=== PATIENT | female | born 1970 | race Caucasian/White ===

== ENCOUNTER 2019-11-17 17:37 | Emergency (ER) | payer BC, OTHER ==
[2019-11-17 19:40] LABS: Absolute Lymphocytes (CBC) 1.1 K/uL (0.7-4.9); Basophils % 0.4 % (0-1.3); Hematocrit 35.4 % (36.0-45.0); Lymphocytes % 18.5 % (15.3-44.8); MPV 7.4 fL (7.6-11.3); RBC Red Blood Cell Count 4.01 M/uL (3.86-4.86)
[2019-11-17] MEDS ORDERED: METHYLPREDNISOLONE 125 MG INJ ONE (19:40)
[2019-11-17 19:42] LABS: Protime INR 0.86
[2019-11-17] MEDS ORDERED: ALBUTEROL 2.5 MG/3 ML NEB SOL ONE (19:42)
[2019-11-17] MEDS ORDERED: FENTANYL CITR 100 MCG/2 ML ONE (19:42)
[2019-11-17 20:03] LABS: ALT/SGPT 16 U/L (12-78); AST/SGOT 10 U/L (15-37); Albumin 2.7 g/dL (3.4-5.0); Alkaline Phosphatase 69 U/L (45-117); BUN Blood Urea Nitrogen 15 mg/dL (7-18); Bicarbonate 27 mmol/L (21-32); Bilirubin Direct < 0.1 mg/dL (0-0.2); Bilirubin Total 0.2 mg/dL (0.2-1.0); Glucose Level 105 mg/dL (74-106); NT PRO-BNP 112 pg/mL (<125); Potassium 3.8 mmol/L (3.5-5.1); Protein, Total 7.2 g/dL (6.4-8.2); Sodium Level 141 mmol/L (136-145); Troponin (Emerg Dept Use Only) < 0.02 ng/mL (0.0-0.045)
--- NOTE | 2019-11-17 20:03 | RAD REPORT ---
EXAM DESCRIPTION: Jeniffer Single View11/17/2019 7:35 pm CLINICAL HISTORY: sob COMPARISON: 2014 FINDINGS: The lungs appear clear of acute infiltrate. The heart is normal size IMPRESSION: No acute abnormalities displayed
--- NOTE | 2019-11-17 21:37 | EDPHYS ---
Physician Documentation [facility] Name: Jeana Wilks Age: 49 yrs Sex: Female : 1970 Arrival Date: 11/17/2019 Time: 17:41 Bed 19 Private MD: ED Physician Alvin Angulo HPI: 11/16 19:48 This 49 yrs old Female presents to ER via EMS with complaints of shortness of jr8 breath. 19:48 The patient has shortness of breath at rest. Onset: The symptoms/episode began/occurred jr8 gradually, 4 day(s) ago. Duration: The symptoms are continuous. The patient's shortness of breath is aggravated by light activity. Associated signs and symptoms: The patient has no apparent associated signs or symptoms. Severity of symptoms: At their worst the symptoms were moderate in the emergency department the symptoms are unchanged. The patient has not experienced similar symptoms in the past. The patient has been recently seen by a physician:. Patient stated that she has spinal stimulater put in this past Wednesday. Since d/c has had shortness of breath. Was seen at [facility] yesterday and has labs and CT of chest/Abd/Pelvis completed. No PE but did have ground glass opacity both lungs. Also had COVID rapid test completed which was negative. Came in today for unresolved shortness of breath . 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 - Social history:: Smoking status: unknown. ROS: 19:48 Eyes: Negative for injury, pain, redness, and discharge, ENT: Negative for injury, jr8 pain, and discharge, Neck: Negative for injury, pain, and swelling, Cardiovascular: Negative for chest pain, palpitations, and edema, Abdomen/GI: Negative for abdominal pain, nausea, vomiting, diarrhea, and constipation, Back: Negative for injury and pain, MS/Extremity: Negative for injury and deformity, Skin: Negative for injury, rash, and discoloration, Neuro: Negative for headache, weakness, numbness, tingling, and seizure. 19:48 Respiratory: Positive for shortness of breath, wheezing. Exam: 19:48 Eyes: Pupils equal round and reactive to light, extra-ocular motions intact. Lids and jr8 lashes normal. Conjunctiva and sclera are non-icteric and not injected. Cornea within normal limits. Periorbital areas with no swelling, redness, or edema. ENT: Nares patent. No nasal discharge, no septal abnormalities noted. Tympanic membranes are normal and external auditory canals are clear. Oropharynx with no redness, swelling, or masses, exudates, or evidence of obstruction, uvula midline. Mucous membranes moist. Neck: Trachea midline, no thyromegaly or masses palpated, and no cervical lymphadenopathy. Supple, full range of motion without nuchal rigidity, or vertebral point tenderness. No Meningismus. Cardiovascular: Regular rate and rhythm with a normal S1 and S2. No gallops, murmurs, or rubs. Normal PMI, no JVD. No pulse deficits. Abdomen/GI: Soft, non-tender, with normal bowel sounds. No distension or tympany. No guarding or rebound. No evidence of tenderness throughout. Back: No spinal tenderness. No costovertebral tenderness. Full range of motion. Skin: Warm, dry with normal turgor. Normal color with no rashes, no lesions, and no evidence of cellulitis. MS/ Extremity: Pulses equal, no cyanosis. Neurovascular intact. Full, normal range of motion. Neuro: Awake and alert, GCS 15, oriented to person, place, time, and situation. Cranial nerves II-XII grossly intact. Motor strength 5/5 in all extremities. Sensory grossly intact. Cerebellar exam normal. Normal gait. 19:48 Respiratory: the patient does not display signs of respiratory distress, Respirations: normal, Breath sounds: wheezing: expiratory that is moderate, is heard diffusely. Vital Signs: 17:45 BP 109 / 71; Pulse 100; Resp 16; Temp 97.8; Pulse Ox 96% on R/A; bp 18:15 BP 111 / 90; Pulse 101; Resp 16; Pulse Ox 97% ; bp 19:30 BP 114 / 79; Pulse 102; Resp 20; Pulse Ox 100% on R/A; wh 20:00 BP 102 / 56; Pulse 93; Resp 20; Pulse Ox 100% on R/A; wh 21:00 BP 102 / 87; Pulse 96; Resp 20; Pulse Ox 98% on Nebulizer Mask; 21:56 BP 110 / 74; Pulse 98; Resp 18; Pulse Ox 96% ; wh MDM: 18:48 Patient medically screened. [facility] 21:38 Data reviewed: vital signs, nurses notes, lab test result(s), EKG, radiologic studies, jr8 plain films. Data interpreted: Pulse oximetry: on room air is 98 %. Interpretation: normal. Counseling: I had a detailed discussion with the patient and/or guardian regarding: the historical points, exam findings, and any diagnostic results supporting the discharge/admit diagnosis, lab results, radiology results, the need for outpatient follow up, a family practitioner, to return to the emergency department if symptoms worsen or persist or if there are any questions or concerns that arise at home. Response to treatment: the patient's symptoms have markedly improved after treatment. 11/16 19:03 Order name: Basic Metabolic Panel; Complete Time: 20:09 [facility] 11/16 19:03 Order name: CBC with Diff; Complete Time: 19:52 [facility] 11/16 19:03 Order name: LFT's; Complete Time: 20:09 [facility] 11/16 19:03 Order name: Magnesium; Complete Time: 20:09 [facility] 11/16 19:03 Order name: NT PRO-BNP; Complete Time: 20:09 [facility] 11/16 19:03 Order name: PT-INR; Complete Time: 19:52 [facility] 11/16 19:03 Order name: Troponin (emerg Dept Use Only); Complete Time: 20:09 [facility] 11/16 19:03 Order name: XRAY Chest (1 view); Complete Time: 20:09 [facility] 11/16 19:03 Order name: EKG; Complete Time: 19:03 [facility] 11/16 19:03 Order name: Cardiac monitoring; Complete Time: 19:30 [facility] 11/16 19:03 Order name: EKG - Nurse/Tech; Complete Time: 19:30 [facility] 11/16 19:03 Order name: IV Saline Lock; Complete Time: 19:30 [facility] 11/16 19:03 Order name: Labs collected and sent; Complete Time: 19:30 [facility] 11/16 19:03 Order name: O2 Per Protocol; Complete Time: 19:30 [facility] 11/16 19:03 Order name: O2 Sat Monitoring; Complete Time: 19:30 jr8 Administered Medications: 19:33 Drug: SOLU-Medrol 125 mg Route: IVP; Site: right antecubital; 21:01 Follow up: Response: No adverse reaction 19:35 Drug: fentaNYL (PF) 50 mcg {Note: RASS 0.} Route: IVP; Site: right antecubital; 21:01 Follow up: Response: No adverse reaction; Pain is decreased; RASS: Alert and Calm (0) 19:37 Drug: Albuterol 2.5 mg Route: Inhalation; 20:10 Drug: Albuterol 2.5 mg Route: Inhalation; 21:01 Drug: Albuterol 2.5 mg Route: Inhalation; 21:18 Follow up: Response: No adverse reaction; Wheezing diminished Disposition: 11/17/19 21:36 Discharged to Home. Impression: Bronchitis, not specified as acute or chronic. - Condition is Stable. - Discharge Instructions: Acute Bronchitis, Adult, Pneumonitis. - Prescriptions for Prednisone 20 mg Oral Tablet - take 1 tablet by ORAL route once daily for 5 days; 5 tablet. Zithromax Z- Jose 250 mg Oral Tablet - take 1 tablet by ORAL route as directed for 5 days Day 1 - take two (2) tablets one time. Day 2, 3, 4 , 5 take one (1) tablet once daily.; 6 tablet. Albuterol Sulfate 90 mcg/actuation - inhale 1-2 puff by INHALATION route every 4-6 hours; 1 Inhaler. Flovent HFA 110 mcg/actuation Inhalation Aerosol - inhale 2 puffs by INHALATION route 2 times per day for 7 days; 1 Inhaler. - Medication Reconciliation Form, Thank You Letter, Antibiotic Education, Prescription Opioid Use form. - Follow up: Private Physician; When: 2 - 3 days; Reason: Recheck today's complaints, Continuance of care, Re-evaluation by your physician. - Problem is new. - Symptoms have improved. Addendum: 11/20/2019 17:55 Co-signature as Attending Physician, Alvin Angulo MD. r n Signatures: Dispatcher [employer] EDAK Alvin Angulo MD MD rn Roszak, Josh, PA PA jr8 Nica Gutierrez Antonio, Keith, RN RN bp Corrections: (The following items were deleted from the chart) 11/16 21:57 21:36 11/17/2019 21:36 Discharged to Home. Impression: Bronchitis, not specified as wh acute or chronic. Condition is Stable. Forms are Medication Reconciliation Form, Thank You Letter, Antibiotic Education, Prescription Opioid Use. Follow up: Private Physician; When: 2 - 3 days; Reason: Recheck today's complaints, Continuance of care, Re-evaluation by your physician. Problem is new. Symptoms have improved. jr8
--- NOTE | 2019-11-17 21:37 | ER ---
Nurse's Notes [facility] Name: Jeana Wilks Age: 49 yrs Sex: Female : 1970 Arrival Date: 11/17/2019 Time: 17:41 Bed 19 Private MD: Diagnosis: Bronchitis, not specified as acute or chronic Presentation: 11/16 17:45 Chief complaint: Patient states: SOB AND BACK PAIN, SEEN FOR SAME Y/D AT [facility] AND D/C HOME. Coronavirus screen: At this time, the client does not indicate any symptoms associated with coronavirus-19. Ebola Screen: No symptoms or risks identified at this time. Initial Sepsis Screen: Does the patient meet any 2 criteria? HR > 90 bpm. No. Patient's initial sepsis screen is negative. Does the patient have a suspected source of infection? No. Patient's initial sepsis screen is negative. Risk Assessment: Do you want to hurt yourself or someone else? Patient reports no desire to harm self or others. Onset of symptoms is unknown. Care prior to arrival: IV initiated. 20 GA, in the right antecubital area. 17:45 Method Of Arrival: EMS: [facility] bp 17:45 Acuity: BENITO 3 bp Triage Assessment: 17:45 General: Appears distressed, uncomfortable, obese, Behavior is cooperative, appropriate bp for age, anxious. 17:45 Pain: Complains of pain in back. EENT: No deficits noted. Neuro: No deficits noted. bp Cardiovascular: No deficits noted. Respiratory: Reports shortness of breath Breath sounds with wheezes bilaterally. GI: No signs and/or symptoms were reported involving the gastrointestinal system. : No signs and/or symptoms were reported regarding the genitourinary system. Derm: No deficits noted. Musculoskeletal: No deficits noted. 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 - Social history:: Smoking status: unknown. Screenin:45 Abuse screen: Denies threats or abuse. Denies injuries from another. Nutritional bp screening: No deficits noted. Tuberculosis screening: No symptoms or risk factors identified. Fall Risk None identified. Assessment: 17:45 General: SEE TRIAGE NOTE. bp 18:15 Reassessment: PROVIDER EVAL PENDING. bp 19:30 General: Appears in no apparent distress. Behavior is calm, cooperative, appropriate wh for age. Pain: Complains of pain in back Pain does not radiate. Pain currently is 7 out of 10 on a pain scale. Pain began 2-3 days ago. Neuro: Level of Consciousness is awake, alert, obeys commands, Oriented to person, place, time, situation, Appropriate for age. Cardiovascular: Heart tones S1 S2. Respiratory: Reports shortness of breath Airway is patent Respiratory effort is even, unlabored, Respiratory pattern is tachypnea Breath sounds with wheezes bilaterally. GI: Abdomen is flat, non-distended. : No signs and/or symptoms were reported regarding the genitourinary system. EENT: No signs and/or symptoms were reported regarding the EENT system. Derm: Skin is intact, is healthy with good turgor, Skin is pink, warm \T\ dry. normal. Musculoskeletal: Circulation, motion, and sensation intact. 21:00 Reassessment: Patient appears in no apparent distress at this time. Patient and/or wh family updated on plan of care and expected duration. Pain level reassessed. Patient is alert, oriented x 3, equal unlabored respirations, skin warm/dry/pink. Patient states feeling better. Patient states symptoms have improved. 21:56 Reassessment: Patient appears in no apparent distress at this time. Patient and/or wh family updated on plan of care and expected duration. Pain level reassessed. Patient is alert, oriented x 3, equal unlabored respirations, skin warm/dry/pink. Patient states feeling better. Patient states symptoms have improved. Vital Signs: 17:45 BP 109 / 71; Pulse 100; Resp 16; Temp 97.8; Pulse Ox 96% on R/A; bp 18:15 BP 111 / 90; Pulse 101; Resp 16; Pulse Ox 97% ; bp 19:30 BP 114 / 79; Pulse 102; Resp 20; Pulse Ox 100% on R/A; wh 20:00 BP 102 / 56; Pulse 93; Resp 20; Pulse Ox 100% on R/A; wh 21:00 BP 102 / 87; Pulse 96; Resp 20; Pulse Ox 98% on Nebulizer Mask; 21:56 BP 110 / 74; Pulse 98; Resp 18; Pulse Ox 96% ; wh ED Course: 17:41 Patient arrived in ED. em1 17:45 Arm band placed on right wrist. bp 17:45 Patient has correct armband on for positive identification. Bed in low position. Call bp light in reach. Side rails up X2. 17:45 Maintain EMS IV. Dressing intact. Good blood return noted. Site clean \T\ dry. Gauge \T\ bp site: 20 GAUGE R AC. 17:46 Keith Alvarez, RN is Primary Nurse. bp 18:21 Triage completed. bp 18:33 Michael Kwon PA is PHCP. jr8 18:33 Alvin Angulo MD is Attending Physician. jr8 19:35 XRAY Chest (1 view) In Process Unspecified. EDMS 21:56 No provider procedures requiring assistance completed. IV discontinued, intact, bleeding controlled, No redness/swelling at site. Administered Medications: 19:33 Drug: SOLU-Medrol 125 mg Route: IVP; Site: right antecubital; 21:01 Follow up: Response: No adverse reaction 19:35 Drug: fentaNYL (PF) 50 mcg {Note: RASS 0.} Route: IVP; Site: right antecubital; 21:01 Follow up: Response: No adverse reaction; Pain is decreased; RASS: Alert and Calm (0) 19:37 Drug: Albuterol 2.5 mg Route: Inhalation; 20:10 Drug: Albuterol 2.5 mg Route: Inhalation; 21:01 Drug: Albuterol 2.5 mg Route: Inhalation; 21:18 Follow up: Response: No adverse reaction; Wheezing diminished Outcome: 21:36 Discharge ordered by . jr8 21:56 Discharged to home via wheelchair. 21:56 Condition: stable 21:56 Discharge instructions given to patient, Instructed on discharge instructions, follow up and referral plans. medication usage, POC Demonstrated understanding of instructions, follow-up care, medications, POC Prescriptions given X 4. 21:57 Patient left the ED. Signatures: Dispatcher [employer] EDMS Kvng Boudreaux em1 Michael Kwon PA PA jr8 Nica Gutierrez Antonio, Keith, RN RN bp
[2019-11-17 22:16] VITALS: TEMP 97.8
[2019-11-17 22:23] VITALS: BP 110/74; O2SAT 96
--- NOTE | 2019-11-18 08:20 | EKG ---
Test Date: 2019-11-17 Test Time: 19:22:06 Bss Solution Architect: MEASUREMENT RESULTS: Intervals: Rate: 98 WY: 146 QRSD: 66 QT: 340 QTc: 434 [place]: P: 41 WY: 146 QRS: 20 T: 25 INTERPRETIVE STATEMENTS: Normal sinus rhythm Low voltage QRS Borderline ECG Compared to ECG 03/27/2014 02:50:35 Low QRS voltage now present Myocardial infarct finding no longer present Electronically Signed On 11-18-19 08:19:19 CDT by Mathieu Sherwood
--- OUTSIDE RECORDS SUMMARY | 2019-11-22 21:13 | XMS REPORT | Summary of Care ---
:1970 Author Name FLORESITA MEDINA Address Unavailable Unavailable , Care Team Providers Name Role Phone TSERING Louise Unavailable Unavailable FLORESITA TAYLORM Unavailable Unavailable YEFRI CLARK Unavailable Unavailable LUMA THOMPSON Unavailable Unavailable Vi THOMPSON Unavailable Janett WEINER MD Unavailable Unavailable TSERING LARKIN MD Unavailable Unavailable FLORENTINO WEBSTER UT Unavailable Unavailable FLORESITA DPM UT Unavailable Unavailable FLORESITA THOMPSON Unavailable Unavailable Unavailable Unavailable Unavailable Functional Status Name Dates Details Functional status health issues are not documented Status: Name Dates Details Cognitive status health issues are not documented Status: Problems Name Dates Details Osteoarthritis of left knee (715.96, M17.12) Status: Active Essential (primary) hypertension (401.9, I10) Status: Active GERD (gastroesophageal reflux disease) (530.81, K21.9) Status: Active Depression (311, F32.9) Status: Active Rheumatoid arthritis (714.0, M06.9) Stat us: Active Hypothyroidism (244.9, E03.9) Status: Ac tive Bilateral knee pain (719.46, M25.561) St atus: Active Chronic, continuous use of opioids (305.51, F11.90) Status: Active Osteoarthritis of right knee (715.96, M17.11) Status: Active Arthritis of both knees (716.96, M17.0) Status: Active Bunion, left (727.1, M21.612) Status: Ac tive Acquired hallux valgus of left foot (735.0, M20.12) Status: Active Acquired hammer toe of left foot (735.4, M20.42) Status: Active Acquired hallux valgus of right foot (735.0, M20.11) Status: Active Bunion, right (727.1, M21.611) Status: A ctive Medications Name Dates Details DULoxetine HCl - 60 MG Oral Capsule Laura yed Release Particles Refills: 0 Active fentaNYL PT72 Refills: 0 Active Synthroid 150 MCG Oral Tablet Refills: 0 Active Famotidine TABS Refills: 0 Active Enoxaparin Sodium 40 MG/0.4ML Subcutaneous Solution INJECT 40 MG Daily Quantity: 14 Refills: 0 TSERING Louise GUNNISON Start : 26-Oct-2018 Active 0.4 ML Syringe Colace 100 MG Oral Capsule TAKE 1 CAPSULE TWICE DAILY. Quantity: 28 Refills: 0 TSERING Louise, GUNNISON Start : 26-Oct-2018 Active Ondansetron HCl - 4 MG Oral Tablet Take 1 tablet Q8H PRN for nausea Quantity: 15 Refills: 0 TSERING Louise, GUNNISON Start : 26-Oct-2018 Active oxyCODONE-Acetaminophen 10-325 MG Oral Tablet Refills: 0 Active Lyrica 150 MG Oral Capsule Refills: 0 Active Colace 100 MG Oral Capsule TAKE 1 CAPSULE TWICE DAILY. Quantity: 28 Refills: 0 TSERING Louise, GUNNISON Start : 26-Dec-2018 Active Enoxaparin Sodium 40 MG/0.4ML Subcutaneous Solution Inject SQ 40mg QD for 4 weeks Quantity: 28 Refills: 0 TSERING Louise, GUNNISON Start : 26-Dec-2018 Active 0.4 ML Syringe Ondansetron HCl - 4 MG Oral Tablet Take 1 tablet Q8H PRN for nausea Quantity: 15 Refills: 0 TSERING Louise, GUNNISON Start : 26-Dec-2018 Active Taytulla CAPS Refills: 0 Active Lyrica CAPS Refills: 0 Active Cymbalta CPEP Refills: 0 Active Allergies and Adverse Reactions Name Dates Details NSAIDs (Allergy) Status: Active Stadol (Allergy) Status: Active Past Medical History Name Dates Details History of anxiety (V11.8, Z86.59) Statu s: Resolved History of arthritis (V13.4, Z87.39) Sta tus: Resolved History of back pain (V13.59, Z87.39) St atus: Resolved History of bruising easily (V13.9, Z86.2) Status: Resolved History of depression (V11.8, Z86.59) St atus: Resolved History of fatigue (V13.89, Z87.898) Sta tus: Resolved History of joint pain (V13.59, Z87.39) S tatus: Resolved History of joint stiffness (V13.59, Z87.39) Status: Resolved History of joint swelling (V13.59, Z87.39) Status: Resolved History of Other depression (311, F32.89) Status: Resolved History of sleep apnea (V13.89, Z86.69) Status: Resolved History of thyroid disease (V12.29, Z86.39) Status: Resolved Procedures Procedure Dates Details [L] 2018 Novel Coronavirus (COVID-19), MAXIMO Date: 31-Jul-2019 History of Knee Surgery Completed History of Meniscus repair Completed Immunization Name Dates Details Immunizations not documented Social History Name Dates Details - Status: Name Dates Details Never smoked tobacco (finding) Vital Signs Date Test Result Details No Known Vitals to report Results Date Description Value Details Results not documented Plan of Care Name Dates Details Planned Observations Planned Goals not documented Planned Encounters Appointment; ALETHA CANAS DPM On: 25-Sep-2019 8:45 Interventions Provided Labs/Procedures/Imaging[A] Xray FOOT COMPLETE MIN. OF 3 VIEWS; Done: 24 Aug 2019 PlanPatient Education/Instructions: Patient education and reassurance was provided for better understanding of the diagnosis and treatment plan. An opportunity to ask questions was provided. X-ray images/reports were reviewed. Findings were discussed in detail. The patient's sutures were removed under sterile conditions. Steri-strips were applied to the affected area. She will continue weight bearing in her boot. Follow Up: Return to the clinic in 4 weeks or as needed. x-ray(s) needed at next visit. Instructions Name Dates Details Instructions not documented Encounters Appointment; ALETHA WEINER M.D. On: 17-Jun-2018 10:45 Encounter Diagnosis: Problem not documented Appointment; POWER CAGLE M.D. On: 05-Jul-2018 14:3 0 Encounter Diagnosis: Problem not documented Appointment; POWER CAGLE M.D. On: 23-Aug-2018 13:00 Encounter Diagnosis: Problem not documented Appointment; POWER CAGLE M.D. On: 11-Oct-2018 9:30 Encounter Diagnosis: Problem not documented Appointment; NAYE DAVIES M.D. On: 31-Oct-2018 9:00 Encounter Diagnosis: Problem not documented Appointment; POWER CAGLE M.D. On: 01-Nov-2018 9:30 Encounter Diagnosis: Problem not documented Appointment; POWER CAGLE M.D. On: 10-Nov-2018 13:0 0 Encounter Diagnosis: Problem not documented Appointment; POWER CAGLE M.D. On: 15-Nov-2018 15:00 Encounter Diagnosis: Problem not documented Appointment; POWER CAGLE M.D. On: 13-Dec-2018 15:0 0 Encounter Diagnosis: Problem not documented Appointment; POWER CAGLE M.D. On: 27-Dec-2018 9:30 Encounter Diagnosis: Problem not documented Appointment; POWER CAGLE M.D. On: 10-Jan-2019 13:1 5 Encounter Diagnosis: Problem not documented Appointment; POWER CAGLE M.D. On: 10-Feb-2019 10:4 5 Encounter Diagnosis: Problem not documented Appointment; POWER CAGLE M.D. On: 28-Feb-2019 13:0 0 Encounter Diagnosis: Problem not documented Appointment; POWER CAGLE M.D. On: 28-Mar-2019 13:0 0 Encounter Diagnosis: Problem not documented Appointment; ALETHA CANAS DPM On: 25-Apr-2019 9:30 Encounter Diagnosis: Problem not documented Appointment; ALETHA CANAS DPM On: 26-Apr-2019 12:00 Encounter Diagnosis: Problem not documented Appointment; ALETHA CANAS DPM On: 08-May-2019 10:00 Encounter Diagnosis: Problem not documented Appointment; ALETHA CANAS DPM On: 12-Jun-2019 9:30 Encounter Diagnosis: Problem not documented Appointment; ALETHA CANAS DPM On: 19-Jun-2019 9:15 Encounter Diagnosis: Problem not documented Appointment; ALETHA CANAS DPM On: 20-Jun-2019 9:00 Encounter Diagnosis: Problem not documented Appointment; ALETHA CANAS DPM On: 14-Aug-2019 7:30 Encounter Diagnosis: Problem not documented Appointment; ALETHA CANAS DPM On: 24-Aug-2019 16:15 Encounter Diagnosis: Problem not documented
--- OUTSIDE RECORDS SUMMARY | 2019-11-22 21:13 | XMS REPORT | Continuity of Care Document ---
:1970 Author Organization [facility] t Address [address] Almeida [address] [place] [id number] Care Team Providers Name Role Phone Garg DO Attending Clinician DR NACHO Attending Clinician Unavailable FLORESITA Attending Clinician Unavailable Radiology Attending Clinician Unavailable Bruno THOMPSON, Gene Attending Clinician TSERING Attending Clinician Unavailable Deyvi THOMPSON Attending Clinician KEKE Attending Clinician Unavailable HUSAM Attending Clinician Unavailable DR NACHO Admitting Clinician Unavailable Problems Condition Condition Condition Status Onset Resolution Last Treating Co mments Source Name Details Category Date Date Treatment Clinician Date History of History of Problem Resolve Univers depression depression d it y of [place] Physici ans History of History of Problem Resolve Univers joint joint d ity of swelling swelling [place] [facility] History of History of Problem Resolve Univers bruising bruising d ity of easily easily [place] [facility] History of History of Problem Resolve Univers fatigue fatigue d ity of [place] [facility] History of History of Problem Resolve Univers Other Other d [place] of depression depression [place] [facility] History of History of Problem Resolve Univers sleep sleep d ity of apnea apnea [place] [facility] History of History of Problem Resolve Univers thyroid thyroid d ity of disease disease [place] [facility] Osteoarthr Osteoarthr Problem Active U nivers itis of itis of [place] left knee [place] Essential Essential Problem Active Uni vers (primary) (primary) ity of hypertensi [place]ens[place] Physici ans GERD GERD Problem Active Univers (gastroeso (gastroeso it y of phageal phageal [place] reflux reflux Physici disease) disease) ans Depression Depression Problem Active U nivers ity of [place] [facility]ici ans Rheumatoid Rheumatoid Problem Active U nivers arthritis arthritis ity of [place] [facility] Hypothyroi Hypothyroi Problem Active U nivers dism dism ity of [place] [facility] ans Bilateral Bilateral Problem Active Uni vers knee pain knee pain ity of [place] [facility] Chronic, Chronic, Problem Active Unive rs continuous continuous it y of use of use of [place] opioids opioids Physici ans Osteoarthr Osteoarthr Problem Active U nivers itis of itis of [place] of right knee right knee [place] Arthritis Arthritis Problem Active Uni vers of both of both ity of knees knees [place] [facility] ans Acquired Acquired Problem Active Unive rs hallux hallux ity of val[place] right foot right foot Ph ysici ans Bunion, Bunion, Problem Active Univers right right ity of [place] Physici ans Bunion, Bunion, Problem Active Univers left left ity of [place] Physici ans Acquired Acquired Problem Active Unive rs hallux hallux ity of valgus of [place] left foot left foot Phys ici ans Acquired Acquired Problem Active Unive rs hammer toe hammer toe it y of of left of left [place] foot foot Physici ans Allergies, Adverse Reactions, Alerts Allergy Allergy Status Severity Reaction(s) Onset Inactive Treating Comm ents Source Name Type Date Date Clinician NSAIDs Allergy Active Univers to drug ity of (finding [place] ) Physici ans Stadol Allergy Active Univers to drug ity of (finding [place] ) Physici ans Social History Smoking Status Start Date Stop Date Source Never smoked tobacco (finding) U [facility] Physicians Medications Ordered Filled Start Stop Current Ordering Indication Dosage Frequency Signature Comments Components Source Medication Medication Date Date Medication? Clinician (SIG) Name Name Colyanni 100 Colace 100 2018-02 Yes STEVE Q0.5D TAKE 1 Univers MG Oral MG Oral 1-11 BRALY M.D. CAPSULE ity of Capsule Capsule 00:00: TWICE [place] 00 DAILY. Physici ans Enoxaparin Enoxaparin 2018-02 Yes [place] Inject SQ Univers Sodium 40 Sodium 40 1-11 BRALY M.D. 40mg QD ity of MG/0.4ML MG/0.4ML 00:00: for 4 [place] Subcutaneou Subcutaneou 00 weeks Physici s Solution s Solution ans Ondansetron Ondansetron 2018-02 Yes [place] Take 1 Univers HCl - 4 MG HCl - 4 MG 1-11 BRALY M.D. tablet Q8H ity of Oral Tablet Oral Tablet 00:00: PRN for [place] 00 nausea Physici ans Enoxaparin Enoxaparin Yes [place] 40 QD INJECT 40 Univers Sodium 40 Sodium 40 9-11 BRALY M.D. MG Daily ity of MG/0.4ML MG/0.4ML 00:00: [place] Subcutaneou Subcutaneou 00 P hysici s Solution s Solution ans Colace 100 Colace 100 Yes [place] Q0.5D TAKE 1 Univers MG Oral MG Oral 9-11 BRALY M.D. CAPSULE ity of Capsule Capsule 00:00: TWICE [place] 00 DAILY. Physici ans Ondansetron Ondansetron Yes [place] Take 1 Univers HCl - 4 MG HCl - 4 MG 9-11 BRALY M.D. tablet Q8H ity of Oral Tablet Oral Tablet 00:00: PRN for [place] nausea Physici ans DULoxetine DULoxetine Yes Uni vers HCl - 60 MG HCl - 60 MG i ty of Oral Oral [place] Capsule Capsule Physici Delayed Delayed ans Release Release Particles Particles fentaNYL fentaNYL Yes Univers PT72 PT72 ity of [place] Physici ans Synthroid Synthroid Yes Unive rs 150 MCG 150 MCG ity of Oral Tablet Oral Tablet [place] Physici ans Famotidine Famotidine Yes Uni vers TABS TABS ity of [place] Physici ans oxyCODONE-A oxyCODONE-A Yes U nivers cetaminophe cetaminophe i ty of n 10-325 MG n 10-325 MG [place] Oral Tablet Oral Tablet P hysici ans Lyrica 150 Lyrica 150 Yes Uni vers MG Oral MG Oral ity of Capsule Capsule [place] Physici ans Taytulla Taytulla Yes Univers CAPS CAPS ity of [place] Physici ans Lyrica CAPS Lyrica CAPS Yes U nivers ity of [place] Physici ans Cymbalta Cymbalta Yes Univers CPEP CPEP ity of [place] Physici ans Vital Signs Vital Name Observation Time Observation Value Comments Source Systolic blood 2019-04-25 148 mm[Hg] University of pressure 11:49:00 [place] Physician s Diastolic blood 2019-04-25 93 mm[Hg] University o pressure 11:49:00 [place] Phys[facility] s Body height 2019-04-25 64 [in_us] [facility] 11:49:00 [place] Physician s Weight 2019-04-25 232 [lb_av] [facility] 11:49:00 [place] [facility] s Body mass index 2019-04-25 39.82 kg/m2 [facility] o (BMI) [Ratio] 11:49:00 [place] Physicia ns Heart Rate 2019-04-25 109 /min [facility] 11:49:00 [place] Phys[facility] s BP Systolic 2018-10-31 115 mm[Hg] Location: [facility]; [facility] 08:51:00 Position: [place] Physician s Sitting BP Diastolic 2018-10-31 81 mm[Hg] Location: [facility]; [facility] 08:51:00 Position: [place] Physician s Sitting Height 2018-10-31 64 [in_us] [facility] 08:51:00 [place] Physician s Weight 2018-10-31 240 [lb_av] [facility] 08:51:00 [place] [facility] s Body Mass Index 2018-10-31 41.2 kg/m2 University o f Calculated 08:51:00 [place] [facility] s Heart Rate 2018-10-31 82 /min [facility] 08:51:00 [place] [facility] Height 2018-10-11 64 [in_us] [facility] 09:50:00 [place] [facility] Weight 2018-10-11 236 [lb_av] [facility] 09:50:00 [place] [facility] Body Mass Index 2018-10-11 40.51 kg/m2 University o f Calculated 09:50:00 [place] [facility] Height 2018-07-06 64 [in_us] [facility] 14:09:00 [place] [facility] s Weight 2018-07-06 245 [lb_av] [facility] of 14:09:00 [place] [facility] Body Mass Index 2018-07-06 42.05 kg/m2 University o f Calculated 14:09:00 [place] [facility] BP Systolic 2018-06-17 126 mm[Hg] Location: [facility]; [facility] 10:58:00 Position: [place] Physician s Sitting BP Diastolic 2018-06-17 85 mm[Hg] Location: [facility]; [facility] 10:58:00 Position: [place] Physician s Sitting Height 2018-06-17 64 [in_us] [facility] 10:58:00 [place] [facility] Weight 2018-06-17 245 [lb_av] [facility] 10:58:00 [place] [facility] Body Mass Index 2018-06-17 42.05 kg/m2 University o f Calculated 10:58:00 [place] [facility] s Heart Rate 2018-06-17 95 /min [facility] 10:58:00 [place] [facility] Procedures Procedure Date / Time Performing Clinician Source Performed Post Op Promis 2019-09-13 00:00:00 [facility] Survey Physicians [L] 20182019-07-31 00:00:00 [place] o f [place] Coronavirus (COVID-19), Physicia ns MAXIMO Post Op Promis 2019-05-05 00:00:00 [facility] Survey Physicians [UTP] Ortho - Surgery 2019-04-25 00:00:00 [facility] Scheduling Physicians [U] XRAY KNEE 3 S 2019-02-10 00:00:00 [facility] LEFT [id number] Physicians Post Op Promis 2019-01-04 00:00:00 [facility] Survey Physicians Post Op Promis 2018-11-15 00:00:00 [facility] Survey Physicians [U] XRAY KNEE 3 S 2018-11-10 00:00:00 [facility] RIGHT [id number] Physicians History of Knee Surgery [facility] Physicians History of Meniscus [facility] [place] [facility] repair Physicians Plan of Care Planned Activity Planned Date Details Comments Source Diagnostic Test 2019-04-25 [UTP] Ortho - [facility] Pending 00:00:00 Surgery Scheduling Physician s [code = [UTP] Ortho - Surgery Scheduling] Encounters Start End Encounter Admission Attending Care Care Encounter Source Date/Time Date/Time Type Type Clinicians Facility Department ID 2019-11-08 Outpatient MHNE MHNE [id number] MH NE 11:35:24 2019-11-16 2019-11-16 Emergency [facility] [id number] 13:23:00 19:39:00 Sedrick Goldsmith [id number] [place] [id number] [place] [id number] 2019-09-21 2019-09-21 Outpatient C NACHO [id number] [place] 05:31:00 11:00:00 , LIANNA [facility] 2019-08-24 2019-08-24 [facility] [id number] Univers 16:15:00 16:15:00 t; ALETHA CANAS, - Sugar ity of [place], DPM [place] DPM Physici ans 2019-08-14 2019-08-14 [facility]shannon [facility] [id number] Univers 07:30:00 07:30:00 t; ALETHA CANAS, - Sugar ity of [place], DPM [place] DPM Physici ans 2019-08-09 2019-08-09 [facility] Radiology [facility] [id number] 17:00:00 23:59:00 [facility] [id number] [place] [id number] [place] [id number] [id number] 2019-06-20 2019-06-20 Young [facility] [id number] Univers 09:00:00 09:00:00 t; ALETHA CANAS, - [place] ity of [place], DPM [place] DPM Physici ans 2019-06-19 2019-06-19 [facility] [id number] Univers 09:15:00 09:15:00 t; ALETHA CANAS, ity of [place], DPM [place] DPM Physici ans 2019-06-12 2019-06-12 [facility] [id number] Univers 09:30:00 09:30:00 t; ALETHA CANAS, ity of [place], DPM [place] DPM Physici ans 2019-05-08 2019-05-08 Young [facility] [id number] Univers 10:00:00 10:00:00 t; ALETHA CANAS, - [place] ity of [place], DPM [place] DPM Physici ans 2019-04-26 2019-04-26 Young [facility] [id number] Univers 12:00:00 12:00:00 t; ALETHA CANAS, - [place] ity of [place], DPM [place] DPM Physici ans 2019-04-25 2019-04-25 Young [facility] [id number] Univers 09:30:00 09:30:00 t; ALETHA CANAS, - [place] ity of [place], DPM [place] DP Physici ans 2019-04-19 2019-04-19 [facility] [id number] 00:00:00 00:00:00 Blade Goldsmith [id number] [place] [id number] [facility] [id number] [facility] 092 [facility] 2019-03-28 2019-03-28 Appointmen JOSE CAGLE Orthopedics [id number] Univers 13:00:00 13:00:00 t; POWER CAGLE [facility] Physi ci and Spine [facility] 2019-03-24 2019-03-24 [facility] [id number] 00:00:00 00:00:00 Luz Agus [id number] [place] [id number] [facility] [id number] [facility] 377 [facility] 2019-03-02 2019-03-02 [facility] [id number] 09:47:00 23:59:00 [facility] Luz Goldsmith [id number] [place] [id number] [place] [id number] 2019-02-28 2019-02-28 AppointJOSE Shaver [id number] Univers 13:00:00 13:00:00 t; POWER CAGLE ity of [place], M.D. [place] M.D. Physici ans 2019-02-10 2019-02-10 AppointJOSE Shaver Orthopedics [id number] Univers 10:45:00 10:45:00 t; POWER CAGLE [facility] Physi ci and Spine [facility] 2019-01-10 2019-01-10 AppointJOSE Shaver [id number] Univers 13:15:00 13:15:00 t; POWER CAGLE ity Dani STEVE M.D. Physici ans 2018-12-31 2018-12-31 Emergency E MHFB MHFB [id number] MHFB 11:42:00 11:42:00 2018-12-27 2018-12-27 JOSE Sewell Orthopedics [id number] Univers 09:30:00 09:30:00 t; POWER CAGLE [facility] Physi ci and Spine [facility] 2018-12-27 2018-12-27 Outpatient MHFB MHFB [id number] MHFB 05:18:00 05:18:00 2018-12-13 2018-12-13 JOSE Sewell Orthopedics [id number] Univers 15:00:00 15:00:00 t; [facility] 2018-11-15 2018-11-15 JOSE Sewell [facility] [id number] Univers 15:00:00 15:00:00 t; POWER CAGLE [facility]y [facility] Physici [facility] 2018-11-10 2018-11-10 JOSE Sewell Orthopedics [id number] Univers 13:00:00 13:00:00 t; POWER CAGLE [facility] ci [facility] Sp[facility] 2018-11-01 2018-11-01 JOSE Sewell Orthopedics [id number] Univers 09:30:00 09:30:00 t; POWER CAGLE [facility] ci [facility] Sp[facility] 2018-10-31 2018-10-31 JOSE Ibarra Multispecia [id number] Univers 09:00:00 09:00:00 t; NAYE DAVIES M.D. lty - i ty of Dani YANCEY Frederickson [place] Physici ans 2018-10-28 2018-10-28 Foreign Carr [facility] [id number] 00:00:00 00:00:00 Blade Goldsmith [id number] [place] [id number] Professio [id number] [facility] 2018-10-20 2018-10-20 Refill Bruno [facility] [id number] 00:00:00 00:00:00 Blade [place] [id number] [place] [id number] Professio [id number] [facility] 2018-10-18 2018-10-18 [facility] Radiology [facility] [id number] 08:17:45 23:59:00 Encounter Elizabeth [id number] [place] [id number] [place] [id number] 2018-10-18 2018-10-18 [facility] Radiology [facility] [id number] 08:17:33 23:59:00 Encounter Elizabeth [id number] [place] [id number] [place] [id number] 2018-10-18 2018-10-18 [facility] Radiology [facility] [id number] 08:17:23 23:59:00 Encounter Elizabeth [id number] [place] [id number] [place] [id number] 2018-10-11 2018-10-11 Appointmen JOSE CAGLE Orthopedics [id number] [facility] 09:30:00 09:30:00 t; POWER CAGLE, [facility] Dani STEVE M.D. Orthopedic Physi ci and Spine [facility] 2018-09-30 2018-09-30 [facility] [id number] 13:01:22 13:57:19 Visit Blade Goldsmith [id number] [place] [id number] Professio [id number] [address] 2018-08-23 2018-08-23 Appointmen JOSE CAGLE [facility] [id number] [facility] 13:00:00 13:00:00 t; POWER CAGLE florentin Dani STEVE M.D. Physici [facility] 2018-07-05 2018-07-05 AppointJOSE Shaver Orthopedics [id number] Univers 14:30:00 14:30:00 t; POWER CAGLE, [facility] Orthopedic Physi ci and Spine [facility] 2018-06-17 2018-06-17 AppointJOSE Amaya [facility] [id number] Univers 10:45:00 10:45:00 t; ALETHA WEINER, Orthopedic i ty of Dani POMPA Surgery - Daniel Tapia Physici Trace 1 ans Results Test Description Test Time Test Comments Results Result Comments Source Post Op Promis 29 Survey 2019-05-03 14:02:47 Test Item Value Reference Range Interpretation Comme nts Pain Interference: (test code = Pain Interference:) 68.1 1 N Pain Intensity: (test code = Pain Intensity:) 53.7 1 N Physical Function: (test code = Physical Function:) 27.8 1 N Satisfaction Role: (test code = Satisfaction Role:) 38.1 1 N [facility] Physicians[U] XRAY KNEE 3 VWS RIGHT [id number] 12:44:00 Images acquired, not reported on this accession number.[facility] [place] [facility]
--- OUTSIDE RECORDS SUMMARY | 2019-11-22 21:14 | XMS REPORT | Summary of Care ---
:1970 Author Name Nico Address Unavailable Unavailable , Care Team Providers Name Role Phone TSERING Louise Unavailable Unavailable Nico Unavailable Unavailable YEFRI CLARK Unavailable Unavailable LUMA THOMPSON Unavailable Janett Lebron MD Unavailable Janett WEINER MD Unavailable Unavailable TSERING LARKIN MD Unavailable Unavailable FLORENTINO WEBSTER [place] Unavailable Unavailable FLORESITA TAYLORM [place] Unavailable Unavailable FLORESITA THOMPSON Unavailable Unavailable [...] Daily Quantity: 14 Refills: 0 TSERING Louise [place] Start : 26-Oct-2018 Active 0.4 ML Syringe Colace 100 MG Oral Capsule TAKE 1 CAPSULE TWICE DAILY. Quantity: 28 Refills: 0 TSERING Louise, [place] Start : 26-Oct-2018 Active Ondansetron HCl - 4 MG Oral Tablet Take 1 tablet Q8H PRN for nausea Quantity: 15 Refills: 0 TSERING Louise, [place] Start : 26-Oct-2018 Active oxyCODONE-Acetaminophen 10-325 MG Oral Tablet Refills: 0 Active Lyrica 150 MG Oral Capsule Refills: 0 Active Colace 100 MG Oral Capsule TAKE 1 CAPSULE TWICE DAILY. Quantity: 28 Refills: 0 TSERING Louise, [place] Start : 26-Dec-2018 Active Enoxaparin Sodium 40 MG/0.4ML Subcutaneous Solution Inject SQ 40mg QD for 4 weeks Quantity: 28 Refills: 0 TSERING Louise, [place] Start : 26-Dec-2018 Active 0.4 ML Syringe Ondansetron HCl - 4 MG Oral Tablet Take 1 tablet Q8H PRN for nausea Quantity: 15 Refills: 0 TSERING Louise, [place] Start : 26-Dec-2018 Active Taytulla CAPS Refills: [...] Z86.39) Status: Resolved Procedures Procedure Dates Details Post Op Promis 29 Survey Date: 13-Sep-2019 [L] 2018 Novel Coronavirus (COVID-19), MAXIMO Date: 31-Jul-2019 History of Meniscus repair Completed History of Knee Surgery Completed Immunization Name Dates Details Immunizations not [...] CANAS DPM On: 25-Sep-2019 8:45 Interventions Provided Labs/Procedures/ImagingPost Op Promis 29 Survey; To Be Done: 13 Sep 2019 Instructions Name Dates Details Instructions not documented [...]
--- OUTSIDE RECORDS SUMMARY | 2019-11-22 21:14 | XMS REPORT | Summary of Care ---
:1970 Author Name FLORESITA MEDINA Address Unavailable Unavailable , Care Team Providers Name Role Phone TSERING Louise Unavailable Unavailable FLORESITA TAYLORM Unavailable Unavailable YEFRI CLARK Unavailable Unavailable LUMA THOMPSON Unavailable Unavailable Vi THOMPSON Unavailable Janett WEINER MD Unavailable Unavailable TSERING LARIKN MD Unavailable Unavailable FLORENTINO WEBSTER [place] Unavailable [...] Daily Quantity: 14 Refills: 0 TSERING Louise [place] Start : 26-Oct-2018 Active 0.4 ML Syringe Colace 100 MG Oral Capsule TAKE 1 CAPSULE TWICE DAILY. Quantity: 28 Refills: 0 TSERING Louise, [place] Start : 26-Oct-2018 Active Ondansetron HCl - 4 MG Oral Tablet Take 1 tablet Q8H PRN for nausea Quantity: 15 Refills: 0 TSERING Louise, [place] Start : 26-Oct-2018 Active oxyCODONE-Acetaminophen 10-325 MG Oral Tablet Refills: 0 Active Lyrica 150 MG Oral Capsule Refills: 0 Active Colace 100 MG Oral Capsule TAKE 1 CAPSULE TWICE DAILY. Quantity: 28 Refills: 0 TSERING Louise, [place] Start : 26-Dec-2018 Active Enoxaparin Sodium 40 MG/0.4ML Subcutaneous Solution Inject SQ 40mg QD for 4 weeks Quantity: 28 Refills: 0 TSERING Louise, [place] Start : 26-Dec-2018 Active 0.4 ML Syringe Ondansetron HCl - 4 MG Oral Tablet Take 1 tablet Q8H PRN for nausea Quantity: 15 Refills: 0 TSERING Louise, [place] Start : 26-Dec-2018 Active Taytulla CAPS Refills: [...]
--- OUTSIDE RECORDS SUMMARY | 2019-11-22 21:14 | XMS REPORT | Summary of Care ---
:1970 Author Name FLORESITA MEDINA Address Unavailable Unavailable , Care Team Providers Name Role Phone TSERING Louise Unavailable Unavailable Jonnie CABRALES Unavailable Unavailable YEFRI CLARK Unavailable Unavailable LUMA [...] Daily Quantity: 14 Refills: 0 TSERING Louise [place] Start : 26-Oct-2018 Active 0.4 ML Syringe Colace 100 MG Oral Capsule TAKE 1 CAPSULE TWICE DAILY. Quantity: 28 Refills: 0 TSERING Louise, [place] Start : 26-Oct-2018 Active Ondansetron HCl - 4 MG Oral Tablet Take 1 tablet Q8H PRN for nausea Quantity: 15 Refills: 0 TSERING Louise, [place] Start : 26-Oct-2018 Active oxyCODONE-Acetaminophen 10-325 MG Oral Tablet Refills: 0 Active Lyrica 150 MG Oral Capsule Refills: 0 Active Colace 100 MG Oral Capsule TAKE 1 CAPSULE TWICE DAILY. Quantity: 28 Refills: 0 TSERING Louise, [place] Start : 26-Dec-2018 Active Enoxaparin Sodium 40 MG/0.4ML Subcutaneous Solution Inject SQ 40mg QD for 4 weeks Quantity: 28 Refills: 0 TSERING Louise, [place] Start : 26-Dec-2018 Active 0.4 ML Syringe Ondansetron HCl - 4 MG Oral Tablet Take 1 tablet Q8H PRN for nausea Quantity: 15 Refills: 0 TSERING Louise, [place] Start : 26-Dec-2018 Active Taytulla CAPS Refills: [...] Z86.39) Status: Resolved Procedures Procedure Dates Details History of Knee Surgery Completed History of Meniscus repair Completed Immunization Name Dates Details Immunizations not documented Social History Name Dates Details - Status: Name Dates Details Never smoked tobacco (finding) Vital Signs Date Test Result Details No Known Vitals to report Results Date Description Value Details Results not documented Plan of Care Name Dates Details Planned Observations Planned Goals not documented Interventions Provided Labs/Procedures/Imaging[L] 2019 Novel Coronavirus (COVID-19), MAXIMO; To Be Done: 31 Jul 2019 Instructions Name Dates Details Instructions not [...]
--- OUTSIDE RECORDS SUMMARY | 2019-11-22 21:15 | XMS REPORT | Summary of Care ---
:1970 Author Organization [facility] - [facility] Address [address] [place] [address] Care Team Providers Name Role Phone Pcp, Does Not Have A Primary Care Provider Reason for Referral MRI/CAT Scan (Routine) Status Reason Specialty Diagnoses / Referred By Referred To Procedures Contact Contact New Request Diagnostic Diagnoses Acute midline low back pain without sciatica Sedrick Garg, Radiology Procedures CT CHEST PULMONARY ANGIOGRAM CT THORAX W CONTRAST DO [address] [place] [address] [place] [id number] MRI/CAT Scan (Routine) Status Reason Specialty Diagnoses / Referred By Referred To Procedures Contact Contact New Request Diagnostic Diagnoses Acute midline low back pain without sciatica Sedrick Garg, Radiology Procedures CT ABDOMEN PELVIS W CONTRAST DO [address] [place] [address] [place] [id number] Reason for Visit Reason Comments Shortness of Breath Pain Auth/Cert Status Reason Specialty Diagnoses / Referred By Referred To Procedures Contact Contact Emergency Medicine [facility] Em ergency Dept [address] [place] [address] Fax: Encounter Details Date Type Department Care Team Description 11/16/2019 Emergency [facility]-Emergency Sedrick Garg DO Acute midline low back pain without scia anne (Primary Dx); Department [address] [place] [address]. Shortness of breath; [address] [place] [address] [address]11 [place] [address] [place] [address] [phone] Allergies Active Allergy Reactions Severity Noted Date Comments Butorphanol Shortness of Breath 08/05/2018 Butorphanol Tartrate Anaphylaxis High 02/23/2019 documented as of this encounter (statuses as of 11/16/2019) Medications Medication Sig Dispensed Refills Start Date End Date Status ALPRAZolam 1 mg TAKE 1 TABLET BY 3 06/22/2018 Active tablet MOUTH EVERY 6 HOURS NEEDED FOR ANXIETY atorvastatin 20 mg TK 1 T PO QHS 2 06/10/2018 Active tablet cyanocobalamin 1,000 INJECT 1000 MCG 3 05/30/2018 Active mcg/mL injection EVERY 2 WEEKS INTRAMUSCULARLY FOR 90 DAYS DULoxetine 60 mg TAKE 1 CAPSULE BY 5 07/12/2018 Active capsule MOUTH TWICE A DAY AIMOVIG AUTOINJECTOR INJ 1ML SC Q MONTH 2 07/12/2018 Active 70 mg/mL AtIn FENTanyl 50 mcg/hr 1 Patch. 0 07/24/2018 Active patch foLIC acid 1 mg TK 1 T PO QD 1 05/17/2018 Active tablet meloxicam 7.5 mg TAKE 1 TABLET BY 0 06/22/2018 Active tablet MOUTH TWICE A DAY SYNTHROID 150 mcg Take 150 mcg by 1 07/12/2018 Active tablet mouth. ofloxacin 0.3 % INSTILL ONE DROP IN 0 06/22/2018 Active ophthalmic solution AFFECTED EYE THREE TIMES DAILY SUMAtriptan 6 mg/0.5 0 08/03/2018 Active mL injection sumatriptan 100 mg 0 08/03/2018 Active tablet PROPRANOLOL 20 mg TAKE 1 TABLET BY 60 tablet 1 10/21/2018 Active tabletIndications: MOUTH TWICE A DAY Intractable migraine without aura and without status migrainosus peg-electrolyte soln Take 4,000 mL by 4000 mL 0 02/24/2019 Active 236-22.74-6.74 -5.86 mouth gram SEE-INSTRUCTIONS. solutionIndications: Take as directed Screening for colorectal cancer OXCARBAZEPINE 150 mg TAKE 3 TABLETS BY 180 tablet 1 04/19/2019 Active tabletIndications: MOUTH 2 (TWO) TIMES Transient alteration DAILY. of awareness documented as of this encounter (statuses as of 11/16/2019) Active Problems Problem Noted Date Screening for colorectal cancer 02/24/2019 Overview: Added automatically from request for gaby juan [id number] Overdose 09/15/2018 Morbid obesity with body mass index of 40.0-49.9 09/15 documented as of this encounter (statuses as of 11/16/2019) Immunizations Name Administration Dates Next Due Human Rabies Vaccine From Chicken 08/29/2018, 08/21/2018, , Fibroblast Culture (RABAVERT) 08/14/2018 Td 08/14/2018 documented as of this encounter Social History Tobacco Use Types Packs/Day Years Used Date Never Smoker Smokeless Tobacco: Never Used Alcohol Use Drinks/Week oz/Week Comments Not Currently Sex Assigned at Date Recorded Not on file COVID-19 Exposure Response Date Recorded In the last month, have you been in contact Unable to assess 11/16/2019 1:20 PM CDT with someone who was confirmed or suspected to have Coronavirus / COVID-19? 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 PROCEDURES IN THE ER TODAY: Orders Placed This Encounter Procedures CT ABDOMEN PELVIS W CONTRAST CT CHEST PULMONARY ANGIOGRAM CBC WITH DIFF COMP. METABOLIC PANEL (02286) N-TERMINAL PRO-BNP TROPONIN I URINALYSIS URINE CULTURE Blood Culture - Peripheral # 1 Blood Culture - Peripheral # 2 COVID-19 (ID NOW RAPID TESTING) MEDICATIONS ADMINISTERED IN THE ER TODAY AND DISCHARGE MEDICATIONS: Orders Placed This Encounter Medications iohexol (OMNIPAQUE 350 BULK-150 mL) injection 120 mL FENTanyl PF (SUBLIMAZE (PF)) injection 100 mcg FOLLOW-UP RECOMMENDATIONS: RECOMMEND FOLLOW-UP WITH A PRIMARY CARE PROVIDER OR SPECIALIST IN 2-5 DAYS, ESPECIALLY IF NO IMPROVEMENT IN SYMPTOMS. MAY FOLLOW-UP WITH A PROVIDER OF YOUR CHOICE, SUCH : 1. A PHYSICIAN OF YOUR CHOICE 2. [facility], . LOCATIONS IN [facility] 3. [facility], [address], [place]; [phone] OR, IF YOU WISH TO FOLLOW-UP WITHIN THE [facility], MAY TRY THESE OPTIONS (CLINIC APPOINTMENTS AVAILABLE ON [id number] BASIS): 1. SCHEDULE AN APPOINTMENT ONLINE AT [email or web address].[facility] 2. OR CALL THE [facility] ACCESS [facility]ENTER AT OR 3. OR CALL YOUR [facility] PHYSICIAN'S OFFICE DIRECTLY IF YOU ARE ALREADY AN ESTABLISHED [facility] PATIENT. RETURN TO ER FOR WORSENING OF SYMPTOMS. AttachmentsThe following attachments cannot be sent through Care Everywhere. Opioid Medicines, Taking (Wallisian)Managing Post-Op Pain at Home (Wallisian) documented in this encounter ED Notes Opal Hill RN - 11/16/2019 2:48 PM CDTPassword: Cat. Patient father reports that patient had been seen post op previously in ER and was given pain management. Joanna Clifford RN - 11/16/2019 1:33 PM CDTPatient hx of lower back pain s/p Neurotransmitter placed Wednesday. Patient with increasing pain to back and sudden onset of wheezing and shortness of breath this AM. Patient with no history of asthma. 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 Now BIBEMS for shortness of breath and midlineback pain. Pain rated as severe. Hyperventilating but not hypoxic. No cough. No fever. 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 GASTROPLASTY DUODENAL SWITCH 2010 TOTAL KNEE ARTHROPLASTY Left 2019 TOTAL KNEE ARTHROPLASTY Right 2019 Allergies Allergies Allergen Reactions Stadol [Butorphanol Tartrate] Anaphylaxis Butorphanol Shortness of Breath Social History Tobacco Use Never smoked or used smokeless tobacco. Alcohol Use Not Currently. Drug Use Never. Review of Systems Review of Systems Constitutional: Negative for chills, fatigue and fever. HENT: Negative for sore throat. Eyes: Negative for pain. Respiratory: Positive for shortness of breath. Negative for cough, chest tightness and stridor. Breasts: Negative for pain. Cardiovascular: Negative for chest pain and palpitations. Gastrointestinal: Negative for abdominal pain, constipation and diarrhea. Genitourinary: Negative for bladder incontinence, vaginal discharge and difficulty urinating. Musculoskeletal: Positive for back pain. Skin: Negative for color change and wound. Neurological: Negative for dizziness, seizures, weakness, light-headedness and headaches. Physical Exam BP 121/82 | Pulse 103 | Temp 36.6 C (97.8 F) | Resp 18 | Wt 104.3 kg (230 lb) | SpO2 99% |BMI 39.48 kg/m Physical Exam Vitals signs and nursing note reviewed. Constitutional: General: She is not in acute distress. Appearance: She is well-developed. She is not diaphoretic. HENT: Head: Normocephalic and atraumatic. Right Ear: External ear normal. Left Ear: External ear normal. Nose: Nose normal. Eyes: General: No scleral icterus. Conjunctiva/sclera: Conjunctivae normal. Pupils: Pupils are equal, round, and reactive to light. Neck: Musculoskeletal: Normal range of motion and neck supple. Cardiovascular: Rate and Rhythm: Regular rhythm. Tachycardia present. Heart sounds: Normal heart sounds. Pulmonary: Effort: Pulmonary effort is normal. Breath sounds: Normal breath sounds. Abdominal: Palpations: Abdomen is soft. Tenderness: There is no abdominal tenderness. Musculoskeletal: Normal range of motion. Skin: General: Skin is warm and dry. Neurological: Mental Status: She is alert and oriented to person, place, and time. Cranial Nerves: No cranial nerve deficit. Deep Tendon Reflexes: Reflexes are normal and symmetric. Psychiatric: Behavior: Behavior normal. Thought Content: Thought content normal. Labs Recent Results (from the past 24 hour(s)) CBC WITH DIFF Collection Time: 11/16/19 2:05 PM Result Value Ref Range WBC 7.56 4.30 - 11.10 10*3/L RBC 3.97 3.93 - 5.25 10*6/L HGB 11.5 (L) 11.6 - 15.0 g/dL HCT 35.8 35.7 - 45.2 % MCV 90.2 80.6 - 95.5 fL MCH 29.0 25.9 - 32.8 pg MCHC 32.1 31.6 - 35.1 g/dL RDW-SD 44.3 39.0 - 49.9 fL RDW-CV 13.3 12.0 - 15.5 % PLT 281 166 - 358 10*3/L MPV 9.3 (L) 9.5 - 12.9 fL NRBC/100 WBC 0.0 0.0 - 10.0 /100 WBCs NRBC x10^3 <0.01 10*3/L GRAN MAT (NEUT) % 65.4 % IMM GRAN % 0.30 % LYMPH % 23.1 % MONO % 6.7 % EOS % 4.1 % BASO % 0.4 % GRAN MAT x10^3(ANC) 4.94 1.88 - 7.09 10*3/uL IMM GRAN x10^3 <0.03 0.00 - 0.06 10*3/uL LYMPH x10^3 1.75 1.32 - 3.29 10*3/uL MONO x10^3 0.51 0.33 - 0.92 10*3/uL EOS x10^3 0.31 0.03 - 0.39 10*3/uL BASO x10^3 0.03 0.01 - 0.07 10*3/uL COMP. METABOLIC PANEL (24141) Collection Time: 11/16/19 2:05 PM Result Value Ref Range NA 135 135 - 145 mmol/L K 3.8 3.5 - 5.0 mmol/L CL 105 98 - 108 mmol/L CO2 TOTAL 27 23 - 31 mmol/L AGAP 3 2 - 16 BUN 15 7 - 23 mg/dL GLUCOSE 107 70 - 110 mg/dL CREATININE 0.74 0.50 - 1.04 mg/dL TOTAL BILI 0.2 0.1 - 1.1 mg/dL CALCIUM 8.1 (L) 8.6 - 10.6 mg/dL T PROTEIN 6.3 6.3 - 8.2 g/dL ALBUMIN 3.2 (L) 3.5 - 5.0 g/dL ALK PHOS 55 34 - 122 U/L ALTv 13 5 - 35 U/L AST(SGOT) 19 13 - 40 U/L eGFR Calculation (Non-) 83.1 mL/min/1.73m2 eGFR Calculation () 100.7 mL/min/1.73m2 N-TERMINAL PRO-BNP Collection Time: 11/16/19 2:05 PM Result Value Ref Range NT-proBNP 182 (H) <=125 pg/mL TROPONIN I Collection Time: 11/16/19 2:05 PM Result Value Ref Range TROPONIN I <0.012 <=0.034 ng/mL Blood Culture - Peripheral # 1 Collection Time: 11/16/19 2:05 PM Specimen: VENOUS; Blood Result Value Ref Range Blood Culture-Aerobic Culture In Progress No growth Blood Culture-Anaerobic Culture In Progress No growth Blood Culture - Peripheral # 2 Collection Time: 11/16/19 2:05 PM Specimen: VENOUS; Blood Result Value Ref Range Blood Culture-Aerobic Culture In Progress No growth Blood Culture-Anaerobic Culture In Progress No growth URINALYSIS Collection Time: 11/16/19 3:46 PM Result Value Ref Range APPEARANCE Clear Clear COLOR Yellow Yellow PH 5.0 4.8 - 8.0 SP GRAVITY >1.060 (H) 1.003 - 1.030 GLU U QUAL Normal Normal BLOOD Negative Negative KETONES Negative Negative PROTEIN Negative Negative UROBILIN 2.0 mg/dL (A) Normal BILIRUBIN Negative Negative NITRITE Negative Negative LEUK BRUNA Negative Negative RBC/HPF 2 0 - 3 HPF WBC/HPF 2 0 - 5 HPF BACTERIA Negative Negative MUCOUS Slight (A) Negative LPF SQ EPITH 6 HPF COVID-19 (ID NOW RAPID TESTING) Collection Time: 11/16/19 4:05 PM Specimen: NASOPHARYNGEAL SWAB Result Value Ref Range SARS-CoV-2 Rapid ID NOW Not Detected Not Detected Imaging Hospital Encounter on 11/16/19 CT CHEST PULMONARY ANGIOGRAM Narrative HISTORY: Rule out P.E. TECHNIQUE: Contrast-enhanced 64-mutidetector CT scan of the chest was completed with intravenous injection of Omnipaque-350 non ionic contrast medium. Subsequently numerous sagittal, coronal and MIP reformations were generated. FINDINGS: Small portions of the thyroid gland is included in this examination appear normal. Trachea and central bronchial airways appear normal. Lymph nodes are seen anterior to the right main bronchus and hilar, largest is in the right infrahilar region of 12 mm size. No acute pulmonary thromboembolism detected. Groundglass haziness noted in both lungs without focal area of consolidation. No pneumothorax or pneumomediastinum. No pleural effusion or pericardial effusion. Note made of bilateral breast augmentation with saline prosthesis, intrathecal electrodes inserted into the thoracic spinal canal with skin meaghan along the dorsal aspect of the chest in the midline. Upper abdominal organs showed evidence of cholecystectomy and vertical band John plasty. Degenerative changes seen in the lower thoracic spines with dextroscoliosis. Prominent Schmorl's node seen involving the lower thoracic endplate, likely secondary to remote axial loading trauma. CONCLUSIONS: 1. No acute pulmonary thromboembolism. 2. Diffuse mild groundglass haziness in both lungs, nonspecific and could be secondary to viral infection. No focal consolidation. No pleural effusion. CT ABDOMEN PELVIS W CONTRAST Narrative CT Abdomen and Pelvis with intravenous contrast. CLINICAL HISTORY: Abdominal pain and fever. Rule out abscess. DOSE: Up-to-date CT equipment and radiation dose reduction techniques were employed. CTDIvol: 12.46+2.43 mGy. DLP: 654+644 mGy-cm. TECHNIQUE : Contiguous axial imaging from the level of the lung bases through the pubic symphysis were performed after the uncomplicated administration of Omnipaque contrast material. Coronal and sagittal reconstructions were obtained. Auto mA and/or iterative reconstruction were used to reduce radiation dose. FINDINGS: Comparison is made with 03/02/2019 studies. Liver, Gallbladder and Spleen: S/P cholecystectomy and vertical band gastroplasty. Minimal dilatation of the biliary ductal system noted. Peritoneum: No free air or free fluid. Slightly enlarged lymph node is seen adjacent to IVC, and and celiac axis, unchanged. Pancreas and Adrenals: Unremarkable pancreas and adrenal glands. Kidneys and Ureters: No visible calculi in the renal collecting systems. No hydroureter or hydronephrosis. Vessels: Unremarkable. Retroperitoneum: No abnormal fluid or lymphadenopathy. Bowel: Garry-en-Y gastrojejunostomy changes. No acute findings. Bladder and Reproductive Organs: No gross pathology in the uterus or adnexa. Urinary bladder is completely distended. No gross pathology seen in the urinary bladder. Bones: Exaggerated lumbar lordosis. No acute findings. Soft tissues: Suprapubic abdominal wall scar noted. Intrathecal electrode inserted into the thoracic spinal canal with battery pack implanted in the left dorsal gluteal soft tissues. No hardware-related complications detected. CONCLUSION: 1. No acute intra-abdominal or pelvic abnormalities detected. 2. S/P cholecystectomy, vertical band gastroplasty and Garry-en-Y gastrojejunostomy. 3. S/P intrathecal electrode insertion with battery pack implanted in left gluteal soft tissues. No hardware-related complication seen. Orders and Treatments Orders Placed This Encounter Procedures CT ABDOMEN PELVIS W CONTRAST CT CHEST PULMONARY ANGIOGRAM CBC WITH DIFF COMP. METABOLIC PANEL (27231) N-TERMINAL PRO-BNP TROPONIN I URINALYSIS URINE CULTURE Blood Culture - Peripheral # 1 Blood Culture - Peripheral # 2 COVID-19 (ID NOW RAPID TESTING) Orders Placed This Encounter Medications iohexol (OMNIPAQUE 350 BULK-150 mL) injection 120 mL FENTanyl PF (SUBLIMAZE (PF)) injection 100 mcg Procedures See ED Procedure Note Notes & MDM Patient was evaluated for an emergency medical condition related to Shortness of Breath and Pain . Differential diagnoses considered by presenting complaints but not limited to: Post operative pain, Infection, PE, shortness of breath, and others. Labs:were ordered, and resulted, any relevant abnormalities were considered. Imaging:Ordered, and resulted, any relevant abnormalities were considered. IV fluids: not indicated Procedures:were not performed. Assessment: Jeana Wilks is a 49 year old female with post operative pain. Patient given fentanyl for pain. CT and labs negative for acute findings. Patient prescribed dilaudid and filled on . Requesting pain meds prior to discharge. Informed RN that patient has an active prescription. Patient became upset thereafter, stating we feel like she is a drug seeker. I reassured her that we did not. Reviewedher imaging and labs at bedside. She was upset with how the RN discharged her, I explained that we were sorry that we did not meet her perceptions and expectations of care. Return precautions given ifsymptoms worsen as documented in the discharge instructions. History, physical exam findings, results of visit, differential diagnosis, medication regimens and plan of future care have been considered. Additional MDM may be found in the ED course. Differential diagnosis considered and final disposition made based on information gathered during evaluation and may not be completely ruled out or specifically listed. Vital signs were rechecked before final disposition and determined to be stable. Diagnosis ICD-10-CM ICD-9-CM 1. Acute midline low back pain without sciatica M54.5 724.2 2. Shortness of breath R06.02 786.05 3. Post-operative pain G89.18 338.18 Disposition & Follow Up ED Disposition ED Disposition Condition Comment Disch - Home Stable Patient's Medications START taking these medications No medications on file CONTINUE taking these medications which have NOT CHANGED AIMOVIG AUTOINJECTOR 70 MG/ML ATIN INJ 1ML SC Q MONTH ALPRAZOLAM 1 MG TABLET TAKE 1 TABLET BY MOUTH EVERY 6 HOURS NEEDED FOR ANXIETY ATORVASTATIN 20 MG TABLET TK 1 T PO QHS CYANOCOBALAMIN 1,000 MCG/ML INJECTION INJECT 1000 MCG EVERY 2 WEEKS INTRAMUSCULARLY FOR 90 DAYS DULOXETINE 60 MG CAPSULE TAKE 1 CAPSULE BY MOUTH TWICE A DAY FENTANYL 50 MCG/HR PATCH 1 Patch. FOLIC ACID 1 MG TABLET TK 1 T PO QD MELOXICAM 7.5 MG TABLET TAKE 1 TABLET BY MOUTH TWICE A DAY OFLOXACIN 0.3 % OPHTHALMIC SOLUTION INSTILL ONE DROP IN AFFECTED EYE THREE TIMES DAILY OXCARBAZEPINE 150 MG TABLET TAKE 3 TABLETS BY MOUTH 2 (TWO) TIMES DAILY. PEG-ELECTROLYTE SOLN 236-22.74-6.74 -5.86 GRAM SOLUTION Take 4,000 mL by mouth SEE-INSTRUCTIONS.Take as directed PROPRANOLOL 20 MG TABLET TAKE 1 TABLET BY MOUTH TWICE A DAY SUMATRIPTAN 100 MG TABLET SUMATRIPTAN 6 MG/0.5 ML INJECTION SYNTHROID 150 MCG TABLET Take 150 mcg by mouth. START taking Modified Medications as Prescribed No medications on file STOP taking these medications No medications on file Contact information for follow-up [facility]-Emergency Department Specialty: Emergency Medicine [address] [place] [id number] Instructions: If symptoms worsen as documented in the discharge Your Pain Specialist/Proceduralist Instructions: For follow up of the presenting symptoms. Sedrick Garg DO 11/16/2019 4:13 PM ACTIVE COVID-19 PANDEMIC. documented in this encounter Miscellaneous Notes ED Nurse Note - Leatha Cee RN - 11/16/2019 6:33 PM CDTPt given printed and verbal discharge instructions regarding back pain, encouraged hydration. Pt verbalized understanding of instructions, pt awake alert oriented, resp reg unlabored, skin w/d, color appropriate for race, moves all ext well,pt encouraged to follow up with PCP. Advised to seek medical attention for new/prolonged/worsening of symptoms. No adverse reaction to meds given in ER noted upon discharge. PIV d'cd, dressing to site, catheter in tact. Awake, alert oriented, resp reg unlabored, skin w/d, pt leaving amb with steady gait, in no apparent distress. D Nurse Note - Leatha Cee RN - 11/16/2019 6:15 PM CDTPatient's concerns about discharge were addressed by myself and Dr. Garg at bedside. D Nurse Note - Leatha Cee, RN - 11/16/2019 4:07 PM CDTPatient's Fentanyl transdermal patch was removed PER Dr. Garg. documented in this encounter Plan of Treatment Name Type Priority Associated Diagnoses Date/Ti nv URINE CULTURE LAB STAT Acute midline low back 02/2019 3:47 PM CDT pain without sciatica Blood Culture - LAB STAT Acute midline low back 2:05 PM CDT Peripheral # 1 pain without sciatica Blood Culture - LAB STAT Acute midline low back 2:05 PM CDT Peripheral # 2 pain without sciatica Name Type Priority Associated Diagnoses Order S chedule URINE CULTURE LAB Routine Acute midline low back pain ONCE for 1 Occurrences without sciatica starting until 11/16/2019 Health Maintenance Due Date Last Done Comments DTaP,Tdap,and Td Vaccines (1 - 1988 08/14/2018 Tdap) PAP SMEAR 1990 Breast Cancer Screening 2009 (MAMMOGRAM) COLON CANCER SCREENING ANNUAL 06/22/2019 FIT/FOBT COLON CANCER SCREENING FIT DNA 06/22/2019 EVERY 3 YEARS COLON CANCER SCREENING 06/22/2019 SIGMOIDOSCOPY EVERY 5 YEARS COLONOSCOPY 06/22/2019 Colorectal Cancer Screening 06/22/2019 Zoster Recombinant Vaccine 06/22/2019 (SHINGRIX) (1 of 2) INFLUENZA VACCINE (#1) 2019 Depression Screening 02/24/2020 02/23/2019 PNEUMOCOCCAL 0-64 YEARS COMBINED Aged Out No longer eligible based on SERIES patient's age to complete this topic documented as of this encounter Procedures Procedure Name Priority Date/Time Associated Comments Diagnosis COVID-19 (ID NOW STAT 11/16/2019 4:05 PM Acute midline low Results for this RAPID TESTING) CDT back pain without procedur e are in sciatica the results section. URINALYSIS STAT 11/16/2019 3:46 PM Acute midline low Res ults for this CDT back pain without procedure are in sciatica the results section. CT CHEST PULMONARY Routine 11/16/2019 3:28 PM Acute midline l ow Results for this ANGIOGRAM CDT back pain without procedure are in sciatica the results section. CT ABDOMEN PELVIS W Routine 11/16/2019 3:28 PM Acute midline low Results for this CONTRAST CDT back pain without procedure are in sciatica the results section. N-TERMINAL PRO-BNP STAT 11/16/2019 2:05 PM Acute midline l ow Results for this CDT back pain without procedure are in sciatica the results section. CBC WITH DIFF STAT 11/16/2019 2:05 PM Acute midline low Re sults for this CDT back pain without procedure are in sciatica the results section. COMP. METABOLIC STAT 11/16/2019 2:05 PM Acute midline low Results for this PANEL (67330) CDT back pain without procedure are in sciatica the results section. TROPONIN I STAT 11/16/2019 2:05 PM Acute midline low Res ults for this CDT back pain without procedure are in sciatica the results section. BLOOD CULTURE SCREEN STAT 11/16/2019 2:05 PM Acute midline low CDT back pain without sciatica BLOOD CULTURE SCREEN STAT 11/16/2019 2:05 PM Acute midline low CDT back pain without sciatica documented in this encounter Results COVID-19 (ID NOW RAPID TESTING) (11/16/2019 4:05 PM CDT) SARS-CoV-2 Rapid ID Not Detected Not Detected [facility] Specimen Swab - NASOPHARYNGEAL SWAB Narrative Performed At ID NOW COVID-19 Assay is an isothermal nucleic [facility] acid amplification test intended for the qualitative detection of nucleic acid from SARS-CoV-2 viral RNA in nasopharyngeal (MARKET SURVEY REPRESENTATIVE) specimens. It is used under Emergency Use Authorization (EUA) by FDA. The limit of detection (LOD) of the assay is 125 Genome Equivalents/mL. A positive result is indicative of the presence of SARS-CoV-2 RNA. Clinical correlation with patient history and other diagnostic information is necessary to determine patient infection status. A negative (Not Detected) result does not preclude SARS-CoV-2 infection. In patients with clinical symptoms and other tests that are consistent with SARS-CoV-2 infection, negative results should be treated as presumptive negative and a new specimen should be tested with alternative PCR molecular test. Invalid: Please collect a new specimen for repeat patient testing if clinically indicated. Performing Organization Address City/State/Zipcode Phone Number [facility] CLIA: [id number] [place] [address] URINALYSIS (11/16/2019 3:46 PM CDT) Pathologist Sig nature APPEARANCE Clear Clear [facility] COLOR Yellow Yellow [facility] PH 5.0 4.8 - 8.0 [facility] SP GRAVITY >1.060 (H) 1.003 - 1.030 [facility] GLU U QUAL Normal Normal [facility] BLOOD Negative Negative [facility] KETONES Negative Negative [facility] PROTEIN Negative Negative [facility] UROBILIN 2.0 mg/dL (A) Normal [facility] BILIRUBIN Negative Negative [facility] NITRITE Negative Negative [facility] LEUK BRUNA Negative Negative [facility] RBC/HPF 2 0 - 3 HPF [facility] WBC/HPF 2 0 - 5 HPF [facility] BACTERIA Negative Negative [facility] MUCOUS Slight (A) Negative LPF [facility] SQ EPITH 6 HPF [facility] Specimen Urine - URINE, CLEAN CATCH Performing Organization Address City/State/Zipcode Phone Number [facility] CLIA: [id number] [place] [address] CHEST PULMONARY ANGIOGRAM (11/16/2019 3:28 PM CDT) Specimen Narrative Performed At HISTORY: Rule out P.E. PACS/VR/DOSE TECHNIQUE: Contrast-enhanced 64-mutidete ctor CT scan of the chest was completed with intravenous injection of Omnipaque-35 0 non ionic contrast medium. Subsequently numerous sagittal, coronal and CA P reformations were generated. FINDINGS: Small portions of the thyroid gland is included in this examination appear normal. Trachea and c entral bronchial airways appear normal. Lymph nodes are seen anterior to the right main bronch us and hilar, largest is in the right infrahilar region of 12 mm size. No acute pulmonary thromboembolism detec gareth. Groundglass haziness noted in both lungs without focal area of consolidation. No pneumothorax or pneumomediastinum. N o pleural effusion or pericardial effusion. Note made of bilateral breast augmentati on with saline prosthesis, intrathecal electrodes inserted into the thoracic spinal canal with skin meaghan along the dorsal aspect of the c hest in the midline. Upper abdominal organs showed evidence of cholecystect jalen and vertical band John plasty. Degenerative changes seen in the lower t horacic spines with dextroscoliosis. Prominent Schmorl's node seen involvi ng the lower thoracic endplate, likely secondary to remote axi al loading trauma. CONCLUSIONS: 1. No acute pulmonary thromboembolism. 2. Diffuse mild groundglass haziness in both lungs, no nspecific and could be secondary to viral infection. No foca l consolidation. No pleural effusion. Procedure Note [facility], Radiant Results Inft User - 2019 3:39 PM CDT HISTORY: Rule out P.E. TECHNIQUE: Contrast-enhanced 64-mutidete ctor CT scan of the chest was completed with intravenous injection of Omnipaque-350 non ionic contrast medium. Subsequently numerous sagittal, coronal and MIP reformations were generated. FINDINGS: Small portions of the thyroid gland is included in this examination appear normal. Trachea and c entral bronchial airways appear normal. Lymph nodes are seen anterior to the rig ht main bronchus and hilar, largest is in the right infrahilar region of 12 mm size. No acute pulmonary thromboembolism detec gareth. Groundglass haziness noted in both lungs without focal area of consolidation. No pneumothorax or pneumo mediastinum. No pleural effusion or pericardial effusion. Note made of bilateral breast augmentati on with saline prosthesis, intrathecal electrodes inserted into the thoracic spinal canal with skin meaghan along the dorsal aspect of the c hest in the midline. Upper abdominal organs showed evidence o f cholecystectomy and vertical band John plasty. Degenerative changes seen in the lower t horacic spines with dextroscoliosis. Prominent Schmorl's nod e seen involving the lower thoracic endplate, likely secondary to remote axi al loading trauma. CONCLUSIONS: 1. No acute pulmonary thromboembolism. 2. Diffuse mild groundglass haziness in both lungs, nonspecific and could be secondary to viral infection. No foca l consolidation. No pleural effusion. Performing Organization Address City/State/[facility] Phone Number PACS/VR/DOSE CT ABDOMEN PELVIS W CONTRAST (11/16/2019 3:28 PM CDT) Specimen Narrative Performed At CT Abdomen and Pelvis with intravenous c ontrast. PACS/VR/DOSE CLINICAL HISTORY: Abdominal pain and fev er. Rule out abscess. DOSE: Up-to-date CT equipment and radiation dose reduc tion techniques were employed. CTDIvol: 12.46+2.43 mGy. DLP: 654+644 mG y-cm. TECHNIQUE : Contiguous axial imaging fro m the level of the lung bases through the pubic symphysis were perform ed after the uncomplicated administration of Omnipaque contrast mat erial. Coronal and sagittal reconstructions were obtained. Auto mA and/or iterativ e reconstruction were used to reduce radiation dose. FINDINGS: Comparison is made with studies. Liver, Gallbladder and Spleen: S/P sapphire cystectomy and vertical band gastroplasty. Minimal dilatation of the biliary ductal system noted. Peritoneum: No free air or free fluid. Slightly enlarged lymph node is seen adjacent to IVC, and and celiac axi s, unchanged. Pancreas and Adrenals: Unremarkable pa ncreas and adrenal glands. Kidneys and Ureters: No visible calculi in the renal collecting systems. No hydroureter or hydronephrosis. Vessels: Unremarkable. Retroperitoneum: No abnormal fluid or ly mphadenopathy. Bowel: Garry-en-Y gastrojejunostomy heaton es. No acute findings. Bladder and Reproductive Organs: No katherine s pathology in the uterus or adnexa. Urinary bladder is completely distended. No gr oss pathology seen in the urinary bladder. Bones: Exaggerated lumbar lordosis. No a cute findings. Soft tissues: Suprapubic abdominal wall scar noted. Intrathecal electrode inserted into the thoracic spina l canal with battery pack implanted in the left dorsal gluteal soft tissues . No hardware-related complications detected. CONCLUSION: 1. No acute intra-abdominal or pelvic ab normalities detected. 2. S/P cholecystectomy, vertical band ga stroplasty and Garry-en-Y gastrojejunostomy. 3. S/P intrathecal electrode insertion with battery pa ck implanted in left gluteal soft tissues. No hardware-relate d complication seen. Procedure Note [facility], Radiant Results Inft User - 2019 3:[address] Abdomen and Pelvis with intravenous contrast. CLINICAL HISTORY: Abdominal pain and fev er. Rule out abscess. DOSE: Up-to-date CT equipment and radiat ion dose reduction techniques were employed. CTDIvol: 12.46+2.43 mGy. DLP: 654+644 mG y-cm. TECHNIQUE : Contiguous axial imaging fro m the level of the lung bases through the pubic symphysis were perform ed after the uncomplicated administration of Omnipaque contrast mat erial. Coronal and sagittal reconstructions were obtained. Auto mA a nd/or iterative reconstruction were used to reduce radiation dose. FINDINGS: Comparison is made with studies. Liver, Gallbladder and Spleen: S/P sapphire cystectomy and vertical band gastroplasty. Minimal dilatation of the biliary ductal system noted. Peritoneum: No free air or free fluid. Slightly enlarged lymph node is seen adjacent to IVC, and and celiac axi s, unchanged. Pancreas and Adrenals: Unremarkable medley creas and adrenal glands. Kidneys and Ureters: No visible calculi in the renal collecting systems. No hydroureter or hydronephrosis. Vessels: Unremarkable. Retroperitoneum: No abnormal fluid or ly mphadenopathy. Bowel: Garry-en-Y gastrojejunostomy heaton es. No acute findings. Bladder and Reproductive Organs: No katherine s pathology in the uterus or adnexa. Urinary bladder is completely di stended. No gross pathology seen in the urinary bladder. Bones: Exaggerated lumbar lordosis. No a cute findings. Soft tissues: Suprapubic abdominal wall scar noted. Intrathecal electrode inserted into the thoracic spinal canal with battery pack implanted in the left dorsal glutea l soft tissues. No hardware-related complications detected. CONCLUSION: 1. No acute intra-abdominal or pelvic ab normalities detected. 2. S/P cholecystectomy, vertical band ga stroplasty and Garry-en-Y gastrojejunostomy. 3. S/P intrathecal electrode insertion w ith battery pack implanted in left gluteal soft tissues. No hardware-relate d complication seen. Performing Organization Address [facility] Phone Number PACS/VR/DOSE TROPONIN I (11/16/2019 2:05 PM CDT) Pathologist Sig nature TROPONIN I <0.012 <=0.034 ng/mL [facility] Specimen Blood - VENOUS Narrative Performed At Equal or Less than 0.034 ng/ml---Normal [facility] Note: Cardiac troponin begins to rise 3-4 hours after the onset of ischemia. Repeat in 4-6 hours if the sample was drawn within 3-4 hours of the onset of the symptom and found normal. Between 0.035 and 0.120 ng/mL--- Borderline. Questionable myocardial injury or necros is Note: Serial measurement may be necessary to confirm or exclude the diagnosis of myocardial injury or necrosis; Clinical correlation (symptoms, EKGs, imaging studies, and others) required; Repeat in 4-6 hours if clinically indicated. Equal or Higher than 0.121 ng/mL---Abnormal. Myocardial Injury or Necrosis Likely Biotin has been reported to cause a negative bias, interpret results relative to patient's use of biotin. Performing Organization Address [facility]/Zipcode Phone Number [facility] CLIA: [id number] [place] [address] N-TERMINAL PRO-BNP (11/16/2019 2:05 PM CDT) [facility] NT-proBNP 182 (H) <=125 pg/mL [facility] Specimen Blood - VENOUS Narrative Performed At [facility] has been reported to cause a negative [facility] bias, interpret results relative to patient's use of biotin. Performing Organization Address City/State/Zipcode Phone Number [facility] CLIA: [id number] [place] [address] COMP. METABOLIC PANEL ([id number]) (11/16/2019 2:05 PM CDT) [facility] NA 135 135 - 145 [facility] mmol/L [facility] K 3.8 3.5 - 5.0 [facility] mmol/L [facility] CL 105 98 - 108 mmol/L [facility] CO2 TOTAL 27 23 - 31 mmol/L [facility] AGAP 3 2 - 16 [facility] BUN 15 7 - 23 mg/dL [facility] GLUCOSE 107 70 - 110 mg/dL [facility] CREATININE 0.74 0.50 - 1.04 [facility] mg/dL [facility] TOTAL BILI 0.2 0.1 - 1.1 mg/dL [facility] CALCIUM 8.1 (L) 8.6 - 10.6 [facility] mg/dL [facility] T PROTEIN 6.3 6.3 - 8.2 g/dL [facility] ALBUMIN 3.2 (L) 3.5 - 5.0 g/dL [facility] ALK PHOS 55 34 - 122 U/L [facility] ALTv 13 5 - 35 U/L [facility] AST(SGOT) 19 13 - 40 U/L [facility] eGFR Calculation 83.1 mL/min/1.73m2 [facility] (Non[facility] [place]) eGFR Calculation 100.7 mL/min/1.73m2 [facility] () HOSPITAL LABORATORY Specimen Blood - VENOUS Narrative Performed At [facility] Glomerular Filtration Rate (GFR) [facility] and Staging of Kidney Disease* + + +- + | GFR (mL/min/1.73 m2) | With Kidney Damage | Without Kidney Damage + + +- + | >90 | Stage one | Normal + + +- + | 60-89 | Stage two | Decreased GFR + + +- + | 30-59 | Stage three | Stage three + + +- + | 15-29 | Stage four | Stage four + + +- + | <15 (or dialysis) | Stage five | Stage five + + +- + *Each stage assumes the associated GFR level has been in effect for at least three months. Stages 1 to 5, with or without kidney disease, indicate chronic kidney disease. Notes: Determination of stages one and two (with eGFR >59mL/min/1.73 m2) requires estimation of kidney damage for at least three months as defined by structural or functional abnormalities of the kidney, manifested by either: Pathological abnormalities or Markers of kidney damage (including abnormalities in the composition of the blood or urine or abnormalities in imaging tests). Performing Organization Address City/State/Zipcode Phone Number [facility] CLIA: [id number] [place] [address] CBC WITH DIFF (11/16/2019 2:05 PM CDT) Pathologist Sig nature WBC 7.56 4.30 - 11.10 [facility] 10*3/L [facility] RBC 3.97 3.93 - 5.25 [facility] 10*6/L [facility] HGB 11.5 (L) 11.6 - 15.0 [facility] g/dL [facility] HCT 35.8 35.7 - 45.2 % [facility] MCV 90.2 80.6 - 95.5 fL [facility] MCH 29.0 25.9 - 32.8 pg [facility] MCHC 32.1 31.6 - 35.1 [facility] g/dL [facility] RDW-SD 44.3 39.0 - 49.9 fL [facility] RDW-CV 13.3 12.0 - 15.5 % [facility] PLT 281 166 - 358 [facility] 10*3/L [facility] MPV 9.3 (L) 9.5 - 12.9 fL [facility] NRBC/100 WBC 0.0 0.0 - 10.0 /100 [facility] WBCs [facility] NRBC x10^3 <0.01 10*3/L [facility] GRAN MAT (NEUT) % 65.4 % [facility] IMM GRAN % 0.30 % [facility] LYMPH % 23.1 % [facility] MONO % 6.7 % [facility] EOS % 4.1 % [facility] BASO % 0.4 % [facility] GRAN MAT x10^3(ANC) 4.94 1.88 - 7.09 [facility] 10*3/uL [facility] IMM GRAN x10^3 <0.03 0.00 - 0.06 [facility] 10*3/uL HOSPITAL LAB[facility]ORY LYMPH x10^3 1.75 1.32 - 3.29 [facility] 10*3/uL HOSPITAL LAB[facility]ATORY MONO x10^3 0.51 0.33 - 0.92 [facility] 10*3/uL HOSPITAL LAB[facility]ATORY EOS x10^3 0.31 0.03 - 0.39 [facility] 10*3/uL HOSPITAL LAB[facility]ATORY BASO x10^3 0.03 0.01 - 0.07 [facility] 10*3/uL [facility] Specimen Blood - VENOUS Performing Organization Address City/State/Zipcode Phone Number [facility] CLIA: [id number] [place] [address] documented in this encounter Visit Diagnoses Diagnosis Acute midline low back pain without scia anne - Primary Shortness of breath Post-operative pain Other acute postoperative pain documented in this encounter Administered Medications Medication Order MAR Action Action Date Dose Rate Site FENTanyl PF (SUBLIMAZE (PF)) Given 11/16/2019 4:02 PM CDT 100 m cg injection 100 mcg 100 mcg, Slow IV Push, ONCE, 1 dose, Johana 11/16/19 at 1645, Routine iohexol (OMNIPAQUE 350 BULK-150 mL) Given 11/16/2019 3:25 PM CD T 120 mL injection 120 mL 120 mL, Intravenous, ONCE, 1 dose, Johana 11/16/19 at 1515, Routine documented in this encounter Additional Health Concerns Infection Onset Date Last Indicated Resolved Time COVID-19 Rule Out 11/16/2019 11/16/2019 11/16/2019 4: 56 PM CDT documented as of this encounter Insurance Payer Benefit Plan Subscriber ID Effective Phone Address Typ e / Group Dates [facility] [id number] 2016-Lynnette [phone] [address] PPO/POS nt [id number] [place] [address] [employer] [id number] 1992- [place], Medicaid HEALTH PLAN - [place]NA[place] [id number] MEDICAID documented as of this encounter"
== END 2019-11-17 21:57 | disposition home or self-care (01) ==
LOC: ER 17:37
DX: J40 Bronchitis, not specified as acute or chronic (principal); G89.29 Other chronic pain; Z88.5 Allergy status to narcotic agent
CPT/HCPCS: 93005; 85025; 80048; 36415; 83735; 85610; 80076; 84484; 83880; 71045; 96375; 96374; 99284; J3010; J2930

== ENCOUNTER 2020-02-18 09:30 | Emergency (ER) | payer BC, OTHER ==
--- OUTSIDE RECORDS SUMMARY | 2020-02-18 09:33 | XMS REPORT | Continuity of Care Document ---
:1970 Author Organization [facility] t Address [address] [place] [address] Care Team Providers Name Role Phone Garg DO Attending Clinician DR NACHO Attending Clinician Unavailable FLORESITA Attending Clinician Unavailable Radiology Attending Clinician Unavailable Bruno THOMPSON, Gene Attending Clinician TSERING Attending Clinician Unavailable Deyvi THOMPSON Attending Clinician KEKE Attending Clinician Unavailable HUSAM Attending Clinician Unavailable DR NACHO Admitting Clinician Unavailable Payers Payer Name Policy Type Policy Number Effective Date Expiration Date S ource Problems Condition Condition Condition Status Onset Resolution [...] it y of use of use of [place] opioids opioids Physici ans Osteoarthr Osteoarthr Problem [...] Problem Active Univers right right [place]y of [place] Physici ans Bunion, Bunion, Problem Active Univers [...] ents Source Name Type Date Date Clinician NSAIDS DA Active U 2016-02 [facility] (Non-Rodney 0-06 [place] roidal 00:00: d Anti-Inf 00 Medical [facility] but[place] DA Active SV 2008-02 [facility] nol 1-30 [place] tartrate 00:00: d 00 [facility] NSAIDs Allergy Active Univers to drug ity of (finding [place] ) Physici ans Stadol Allergy Active Univers to drug ity of (finding [place] ) Physici ans Social History Smoking Status Start Date Stop Date Source Never smoked tobacco (finding) U [facility] Physicians Medications Ordered Filled Start Stop Current Ordering Indication Dosage Frequency Signature Comments Components Source Medication Medication Date Date Medication? Clinician (SIG) Name Name Cecile 100 Colyanni 100 2018-02 Yes SMILEY Q0.5D TAKE 1 Univers MG Oral MG Oral 1-11 BRALY M.D. CAPSULE ity of Capsule Capsule 00:00: TWICE [place] 00 DAILY. Physici ans Enoxaparin Enoxaparin 2018-02 Yes SMILEY Inject SQ Univers Sodium 40 Sodium 40 1-11 BRALY M.D. 40mg QD ity of MG/0.4ML MG/0.4ML 00:00: [place] 4 [place] Subcutane[place] Subcutaneou 00 weeks Physici s Solution s Solution ans Ondansetron Ondansetron 2018-02 Yes SMILEY Take 1 Univers HCl - 4 MG HCl - 4 MG 1-11 BRALY M.D. tablet Q8H ity of Oral Tablet Oral Tablet 00:00: PRN for [place] 00 nausea Physici ans Enoxaparin Enoxaparin Yes SMILEY 40 QD INJECT 40 Univers Sodium 40 Sodium 40 9-11 BRALY M.D. MG Daily ity of MG/0.4ML MG/0.4ML 00:00: [place] Subcutaneou Subcutaneou 00 P hysici s Solution s Solution ans Cecile 100 Colace 100 Yes SMILEY Q0.5D TAKE 1 Univers MG Oral MG Oral 9-11 BRALY M.D. CAPSULE ity of Capsule Capsule 00:00: TWICE [place] 00 DAILY. Physici ans Ondansetron Ondansetron Yes SMILEY Take 1 Univers HCl - 4 MG HCl - 4 MG 9-11 BRALY M.D. tablet Q8H ity of Oral Tablet Oral Tablet 00:00: PRN for [place] 00 nausea Physici ans DULoxetine DULoxetine Yes Uni vers HCl - 60 MG HCl - 60 MG i ty of Oral Oral [place] Capsule Capsule Physici Delayed Delayed ans Release Release Particles Particles fentaNYL fentaNYL Yes Univers PT72 PT72 ity of [place] Physici ans Synthroid Synthroid Yes Unive rs 150 MCG 150 MCG ity of Oral Tablet Oral Tablet [place] Physici ans Famotidine Famotidine Yes Uni vers TABS TABS ity of [place] Physici ans oxyCODONE-A oxyCODONE-A Yes U nivers cetaminophe cetaminophe i ty of n 10-325 MG n 10-325 MG [place] Oral Tablet Oral Tablet P hysici ans [place] 150 Lyrica 150 Yes Uni vers MG Oral MG Oral ity of Capsule Capsule [place] Physici ans Taytulla Taytulla Yes Univers CAPS CAPS ity of [place] Physici ans [place] CAPS [place] CAPS Yes U nivers ity of [place] Physici ans Cymbalta Cymbalta Yes Univers CPEP CPEP ity of [place] Physici ans Vital Signs Vital Name Observation Time Observation Value Comments Source Systolic blood 2019-04-25 148 mm[Hg] [facility] 11:49:00 [place] Physician s Diastolic blood 2019-04-25 93 mm[Hg] University o pressure 11:49:00 [place] Physician s Body height 2019-04-25 64 [in_us] [facility] 11:49:00 [place] Physician s Weight 2019-04-25 232 [lb_av] [facility] 11:49:00 [place] Physician s Body mass index 2019-04-25 39.82 kg/m2 [place] (BMI) [Ratio] 11:49:00 [place] Physicfl ns Heart Rate 2019-04-25 109 /min [facility] 11:49:00 [place] Physician s BP Systolic 2018-10-31 115 mm[Hg] Location: [facility] 08:51:00 Position: [place] Physician s Sitting BP Diastolic 2018-10-31 81 mm[Hg] Location: [facility] 08:51:00 Position: [place] Physician s Sitting Height 2018-10-31 64 [in_us] [facility] 08:51:00 [place] Physician s Weight 2018-10-31 240 [lb_av] [facility] 08:51:00 [place] Physician s Body Mass Index 2018-10-31 41.2 kg/m2 University o f Calculated 08:51:00 [place] Physician s Heart Rate 2018-10-31 82 /min [facility] 08:51:00 [place] Physician s Height 2018-10-11 64 [in_us] [facility] 09:50:00 [place] Physician s Weight 2018-10-11 236 [lb_av] [facility] 09:50:00 [place] Physician s Body Mass Index 2018-10-11 40.51 kg/m2 University o f Calculated 09:50:00 [place] Physician s Height 2018-07-06 64 [in_us] University 14:09:00 [place] Physician s Weight 2018-07-06 245 [lb_av] University 14:09:00 [place] Physician s Body Mass Index 2018-07-06 42.05 kg/m2 University o f Calculated 14:09:00 [place] Physician s BP Systolic 2018-06-17 126 mm[Hg] Location: [facility]; [facility] 10:58:00 Position: [place] Physician s Sitting BP Diastolic 2018-06-17 85 mm[Hg] Location: LLE; [facility] 10:58:00 Position: [place] Physician s Sitting Height 2018-06-17 64 [in_us] [facility] 10:58:00 [place] Physician s Weight 2018-06-17 245 [lb_av] [facility] 10:58:00 [place] Physician s Body Mass Index 2018-06-17 42.05 kg/m2 University o f Calculated 10:58:00 [place] Physician s Heart Rate 2018-06-17 95 /min [facility] 10:58:00 [place] Physician s Procedures Procedure Date / Time Performing Clinician Source Performed Post Op Promis 2019-09-13 00:00:00 [facility] Survey Physicians [L] 2019 2019-07-31 00:00:00 University o f [place] Coronavirus (COVID-19), Physicia ns MAXIMO Post Op Promis 2019-05-05 00:00:00 [facility] Survey Physicians [UTP] Ortho - Surgery 2019-04-25 00:00:00 [facility] Scheduling Physicians [U] XRAY KNEE 3 VWS 2019-02-10 00:00:00 [facility] LEFT [id number] Physicians Post Op Promis 2019-01-04 00:00:00 [facility] Survey Physicians Post Op Promis 2018-11-15 00:00:00 [facility] Survey Physicians [U] XRAY KNEE 3 VWS 2018-11-10 00:00:00 [facility] RIGHT [id number] Physicians History of Knee Surgery [facility] Physicians History of Meniscus [place] f [place] repair Physicians Plan of Care Planned Activity Planned Date Details Comments Source Diagnostic Test 2019-04-25 [UTP] Ortho - [facility] Pending 00:00:00 Surgery Scheduling Physician s [code = [UTP] Ortho - Surgery Scheduling] Encounters Start End Encounter Admission Attending Care Care Encounter Source Date/Time Date/Time Type Type Clinicians Facility Department ID 2019-11-08 Outpatient MHNE MHNE [id number] MH NE 11:35:24 2020-01-08 2020-01-08 Outpatient MHNW MHNW [id number] MHNW 13:10:00 13:10:00 2019-11-16 2019-11-16 Emergency Garg, [facility] [id number] 13:23:00 19:39:00 Sedrick Goldsmith [id number] [place] [id number] [place] [address] [id number] [id number] 2019-09-21 2019-09-21 Outpatient C NACHO [facility] [id number] [place] 05:31:00 11:00:00 , LIANNA [facility] 2019-08-24 2019-08-24 JOSE Haddad [facility]oped[facility] [id number] Univers 16:15:00 16:15:00 t; ALETHA CANAS, - Sugar ity of A[place]TH[place], DPM [place] DPM Physici ans 2019-08-14 2019-08-14 JOSE Hadd[facility] [id number] Univers 07:30:00 07:30:00 t; ALETHA CANAS, - Sugar ity of [place], DPM [place] DPM Physici ans 2019-08-09 2019-08-09 Hospital Radiology [facility] [id number] 17:00:00 23:59:00 Luis Fernando Goldsmith [id number] [place] [id number] [place] [address] [id number] [id number] 2019-06-20 2019-06-20 JOSE [facility] [id number] Univers 09:00:00 09:00:00 t; ALETHA CANAS, - [place] ity of [place], DPM [place] DPM Physici ans 2019-06-19 2019-06-19 JOSE Haddad [facility] [id number] Univers 09:15:00 09:15:00 t; ALETHA CANAS, ity of A[place]TH[place], DPM [place] DPM Physici ans 2019-06-12 2019-06-12 JOSE Haddad [facility] [id number] Univers 09:30:00 09:30:00 t; ALETHA CANAS, ity of [place], DPM [place] DPM Physici ans 2019-05-08 2019-05-08 Appointmen FLORESITA [facility] Orthopedics [id number] Univers 10:00:00 10:00:00 t; ALETHA CANAS, - [place] of [place], DPM [place] DPM Physici ans 2019-04-26 2019-04-26 Appointmen FLORESITA [facility] Orthopedics [id number] Univers 12:00:00 12:00:00 t; ALETHA CANAS, - [place] of [place], DPM [place] DPM Physici ans 2019-04-25 2019-04-25 Appointmen FLORESITA [facility] Orthopedics [id number] Univers 09:30:00 09:30:00 t; ALETHA CANAS, - [place] ity of [place], DPM [place] DPM Physici ans 2019-04-19 2019-04-19 [facility] [id number] 00:00:00 00:00:00 Blade Goldsmith [id number] [place] [id number] Professio [phone] nal 092 [facility] 2019-03-28 2019-03-28 Appointshannon CAGLE [facility] Orthopedics [id number] Univers 13:00:00 13:00:00 t; POWER CAGLE, [facility] ci [facility] Spine [facility] 2019-03-24 2019-03-24 [facility] [id number] 00:00:00 00:00:00 Luz Goldsmith [id number] [place] [id number] Professio [id number] nal 377 [facility] 2019-03-02 2019-03-02 [facility] [id number] 09:47:00 23:59:00 [facility] Luz Goldsmith [id number] [place] [id number] [place] [id number] [facility] 2019-02-28 2019-02-28 Appointshannon CAGLE [facility] [id number] Univers 13:00:00 13:00:00 t; [facility] 2019-02-10 2019-02-10 JOSE Sewell [facility] [id number] Univers 10:45:00 10:45:00 t; [facility] 2019-01-10 2019-01-10 JOSE Sewell [facility] [id number] Univers 13:15:00 13:15:00 t; [facility] Phys[facility] ans 2018-12-31 2018-12-31 Emergency E MHFB MHFB [id number] [facility]FB 11:42:00 11:42:00 2018-12-27 2018-12-27 JOSE Sewell [facility] [id number] Univers 09:30:00 09:30:00 t; POWER CAGLE [facility] 2018-12-27 2018-12-27 Outpatient MHFB MHFB [id number] MHFB 05:18:00 05:18:00 2018-12-13 2018-12-13 JOSE Sewell [facility] [id number] Univers 15:00:00 15:00:00 t; POWER CAGLE [facility] 2018-11-15 2018-11-15 Young CAGLE [facility] [id number] Univers 15:00:00 15:00:00 t; [facility] ans 2018-11-10 2018-11-10 JOSE Sweell [facility] [id number] Univers 13:00:00 13:00:00 t; POWER CAGLE [facility] 2018-11-01 2018-11-01 JOSE Sewell [facility] [id number] Univers 09:30:00 09:30:00 t; POWER CAGLE [facility] ci [facility] 2018-10-31 2018-10-31 Appointmen JOSE DAVIES [facility] [id number] [facility] 09:00:00 09:00:00 t; NAYE DAVIES M.D. lty - i ty of Dani YANCEY [facility] 2018-10-28 2018-10-28 [facility] Bruno, [facility] [id number] 00:00:00 00:00:00 [place]ade [place] [id number] [place] [id number] Professio [phone] [address] 2018-10-20 2018-10-20 [facility] [id number] 00:00:00 00:00:00 Blade [place] [id number] [place] [id number] [phone] [address] 2018-10-18 2018-10-18 [facility] Radiology [facility] [id number] 08:17:45 23:59:00 Encounter [place] [id number] [place] [id number] [place] [id number] 2018-10-18 2018-10-18 [facility] Radiology [facility] [id number] 08:17:33 23:59:00 Encounter [place] [id number] [place] [id number] [place] [id number] 2018-10-18 2018-10-18 [facility] Radiology [facility] [id number] 08:17:23 23:59:00 Encounter [place] [id number] [place] [id number] [place] [id number] 2018-10-11 2018-10-11 Appointmen JOSE CAGLE Orthoped[facility] [id number] [facility] 09:30:00 09:30:00 t; POWER CAGLE [facility] ci [facility] Sp[facility] 2018-09-30 2018-09-30 Office NURY Carr [id number] 13:01:22 13:57:19 Visit Blade Goldsmith [id number] [place] [id number] [place] [phone] [facility] 2018-08-23 2018-08-23 AppointJOSE Shaver [facility] [id number] Univers 13:00:00 13:00:00 t; [facility]ici [facility] 2018-07-05 2018-07-05 AppointJOSE Shaver [facility] [id number] Univers 14:30:00 14:30:00 t; POWER CAGLE [facility] Physi ci and Spine [facility] 2018-06-17 2018-06-17 AppointJOSE Amaya [facility] [id number] Univers 10:45:00 10:45:00 t; ALETHA WEINER, Orthopedic i ty of Dani POMPA Surgery - Daniel Louise Willie Physici Trace 1 ans Results Test Description [...] code = Satisfaction Role:) 38.1 1 N [facility] Physicians[U] XRAY KNEE 3 VWS RIGHT [id number] 12:44:00 Images acquired, not reported on this accession number.[facility] [place] [facility] Physicians
--- NOTE | 2020-02-18 11:15 | ER ---
Nurse's Notes [facility] Name: Jeana Wilks Age: 49 yrs Sex: Female : 1970 Arrival Date: 02/18/2020 Time: 09:32 Bed 16 Private MD: Diagnosis: Pain in left shoulder Presentation: 02/17 09:36 Chief complaint: Patient states: Pt believes her L shoulder may be dislocated since her ss back surgery 6 weeks ago. Coronavirus screen: Client denies travel out of the [place] in the last 14 days. At this time, the client does not indicate any symptoms associated with coronavirus-19. Ebola Screen: Patient denies exposure to infectious person. Patient denies travel to an Ebola-affected area in the 21 days before illness onset. No symptoms or risks identified at this time. Initial Sepsis Screen: Does the patient meet any 2 criteria? No. Patient's initial sepsis screen is negative. Does the patient have a suspected source of infection? No. Patient's initial sepsis screen is negative. Risk Assessment: Do you want to hurt yourself or someone else? Patient reports no desire to harm self or others. Onset of symptoms was January 09, 2020. 09:36 Method Of Arrival: Ambulatory 09:36 Acuity: BENITO 4 ss Historical: - Allergies: 09:40 Stadol; ss - PMHx: 09:40 Chronic pain; Rheumatoid Arthritis; Anxiety; Depression; ss - Immunization history:: Adult Immunizations up to date. - Social history:: Smoking status: Patient denies any tobacco usage or history of. Screenin:16 Abuse screen: Denies threats or abuse. Nutritional screening: No deficits noted. em Tuberculosis screening: No symptoms or risk factors identified. Fall Risk None identified. Assessment: 10:16 General: Appears in no apparent distress. uncomfortable, Behavior is calm, cooperative, em appropriate for age. Pain: Complains of pain in anterior aspect of left shoulder Pain currently is 8 out of 10 on a pain scale. Neuro: Level of Consciousness is awake, alert, obeys commands, Oriented to person, place, time, situation, Appropriate for age. Cardiovascular: Capillary refill < 3 seconds Patient's skin is warm and dry. Respiratory: Airway is patent Respiratory effort is even, unlabored, Respiratory pattern is regular, symmetrical. Derm: Skin is intact, is healthy with good turgor, Skin is pink, warm \T\ dry. Musculoskeletal: Range of motion: limited in left shoulder. Vital Signs: 09:36 Pulse 95; Resp 17; Temp 97.8(TE); Pulse Ox 100% on R/A; Weight 111.58 kg; Height 5 ft. ss 4 in. (162.56 cm); Pain 8/10; 09:40 BP 152 / 85; ss 09:36 Body Mass Index 42.23 (111.58 kg, 162.56 cm) ED Course: 09:32 Patient arrived in ED. rg4 09:38 Jocelyn Monet FNP-C is [facility]. kb 09:38 Niall Morales MD is Attending Physician. kb 09:39 Triage completed. ss 09:46 Dorian Ibanez, RN is Primary Nurse. em 10:16 Patient has correct armband on for positive identification. em 10:16 No provider procedures requiring assistance completed. Patient did not have IV access em during this emergency room visit. 10:23 Shoulder Left (2 View) XRAY In Process Unspecified. EDMS 11:27 Sling applied to left arm. ss Administered Medications: No medications were administered Outcome: 11:14 Discharge ordered by MD. kb 11:28 Discharged to home ambulatory. ss 11:28 Condition: good 11:28 Discharge instructions given to patient, family, Instructed on discharge instructions, follow up and referral plans. Demonstrated understanding of instructions, follow-up care. 11:28 Patient left the ED. Signatures: Dispatcher [employer] EDOR Jocelyn Monet FNP-C FNP-Dorian Cunningham, DANIEL SANCHEZ Meron Hawkins RN RN Khloe Hayden rg4
--- NOTE | 2020-02-18 11:15 | EDPHYS ---
Physician Documentation [facility] Name: Jeana Wilks Age: 49 yrs Sex: Female : 1970 Arrival Date: 02/18/2020 Time: 09:32 Bed 16 Private MD: GLORIA Physician Niall Morales HPI: 02/17 11:20 This 49 yrs old Female presents to ER via Ambulatory with complaints of Arm kb Injury, Inquicker. 11:20 The patient has not recently seen a physician. kb 11:20 The patient or guardian complains of decreased range of motion, pain, tenderness. left kb shoulder. Context: The problem was sustained at the hospital, resulted from surgery, The patient experiences decreased range of motion, The patient reports no obvious deformity. Onset: The symptoms/episode began/occurred 6 week(s) ago. Modifying factors: the symptoms are alleviated by nothing. The symptoms are aggravated by movement. Associated signs and symptoms: The patient has no apparent associated signs or symptoms. Severity of symptoms: At their worst the symptoms were moderate, in the emergency department the symptoms are unchanged. Treatment prior to arrival includes: no previous treatment. The patient has not experienced similar symptoms in the past. Pt reports she had back surgery 6 weeks ago and when she woke up from anesthesia she had pain to left shoulder. Reports she has had pain since then. Has not had it evaluated. States "I just kept hoping it would go away and then the holidays came so I didn't get it looked at. I think its dislocated.". Historical: - Allergies: 09:40 Stadol; ss - PMHx: 09:40 Chronic pain; Rheumatoid Arthritis; Anxiety; Depression; ss - Immunization history:: Adult Immunizations up to date. - Social history:: Smoking status: Patient denies any tobacco usage or history of. ROS: 11:19 Constitutional: Negative for fever, chills, and weight loss, Cardiovascular: Negative kb for chest pain, palpitations, and edema, Respiratory: Negative for shortness of breath, cough, wheezing, and pleuritic chest pain, Abdomen/GI: Negative for abdominal pain, nausea, vomiting, diarrhea, and constipation, Skin: Negative for injury, rash, and discoloration, Neuro: Negative for headache, weakness, numbness, tingling, and seizure. 11:19 MS/extremity: Positive for decreased range of motion, pain, tenderness, of the anterior aspect of left shoulder. Exam: 11:19 Constitutional: This is a well developed, well nourished patient who is awake, alert, kb and in no acute distress. Head/Face: Normocephalic, atraumatic. Chest/axilla: Normal chest wall appearance and motion. Nontender with no deformity. No lesions are appreciated. Cardiovascular: Regular rate and rhythm with a normal S1 and S2. No gallops, murmurs, or rubs. Normal PMI, no JVD. No pulse deficits. Respiratory: Lungs have equal breath sounds bilaterally, clear to auscultation and percussion. No rales, rhonchi or wheezes noted. No increased work of breathing, no retractions or nasal flaring. Abdomen/GI: Soft, non-tender, with normal bowel sounds. No distension or tympany. No guarding or rebound. No evidence of tenderness throughout. Skin: Warm, dry with normal turgor. Normal color with no rashes, no lesions, and no evidence of cellulitis. Neuro: Awake and alert, GCS 15, oriented to person, place, time, and situation. Cranial nerves II-XII grossly intact. Motor strength 5/5 in all extremities. Sensory grossly intact. Cerebellar exam normal. Normal gait. 11:19 Musculoskeletal/extremity: Extremities: grossly normal except: noted in the anterior aspect of left shoulder: decreased ROM, pain, tenderness, ROM: limited active range of motion due to pain, in the anterior aspect of left shoulder, Circulation is intact in all extremities. Sensation intact. Vital Signs: 09:36 Pulse 95; Resp 17; Temp 97.8(TE); Pulse Ox 100% on R/A; Weight 111.58 kg; Height 5 ft. ss 4 in. (162.56 cm); Pain 8/10; 09:40 BP 152 / 85; ss 09:36 Body Mass Index 42.23 (111.58 kg, 162.56 cm) ss MDM: 09:41 Patient medically screened. kb 11:19 Data reviewed: vital signs, nurses notes. Data interpreted: Pulse oximetry: on room air kb is 100 %. Interpretation: normal. Counseling: I had a detailed discussion with the patient and/or guardian regarding: the historical points, exam findings, and any diagnostic results supporting the discharge/admit diagnosis, radiology results, the need for outpatient follow up, a orthopedic surgeon, to return to the emergency department if symptoms worsen or persist or if there are any questions or concerns that arise at home. 02/17 09:42 Order name: Shoulder Left (2 View) XRAY kb 02/17 11:17 Order name: Sling michela Administered Medications: No medications were administered Disposition: 02/18 08:34 Co-signature as Attending Physician, Niall Morales MD I agree with the assessment and elsy plan of care. Disposition: 02/18/20 11:14 Discharged to Home. Impression: Pain in left shoulder. - Condition is Stable. - Discharge Instructions: Musculoskeletal Pain, Shoulder Pain, [id number]. - Medication Reconciliation Form, Thank You Letter, Antibiotic Education, Prescription Opioid Use form. - Follow up: Emergency Department; When: As needed; Reason: Worsening of condition. Follow up: Private Physician; When: 2 - 3 days; Reason: Recheck today's complaints, Continuance of care, Re-evaluation by your physician. Signatures: Dispatcher [employer] EDJocelyn Herrera, GLASSWARE VERIFIER-C GLASSWARE VERIFIER-Ckb Niall Morales MD MD cha Smirch, Shelby, RN RN ss Corrections: (The following items were deleted from the chart) 02/17 11:28 11:14 02/18/2020 11:14 Discharged to Home. Impression: Pain in left shoulder. Condition ss is Stable. Forms are Medication Reconciliation Form, Thank You Letter, Antibiotic Education, Prescription Opioid Use. Follow up: Emergency Department; When: As needed; Reason: Worsening of condition. Follow up: Private Physician; When: 2 - 3 days; Reason: Recheck today's complaints, Continuance of care, Re-evaluation by your physician. kb
[2020-02-18 11:58] VITALS: TEMP 97.8; O2SAT 100
[2020-02-18 12:03] VITALS: BP 152/85
--- NOTE | 2020-02-18 13:07 | RAD REPORT ---
EXAM DESCRIPTION: RAD - Shoulder Left 2 View - 02/18/2020 10:22 am CLINICAL HISTORY: PAIN COMPARISON: No comparisons FINDINGS: Mild AC joint degenerative changes are seen. No fracture or dislocation seen.
== END 2020-02-18 11:28 | disposition home or self-care (01) ==
LOC: ER 09:30
DX: M25.512 Pain in left shoulder (principal); Z88.5 Allergy status to narcotic agent
CPT/HCPCS: 99283